=== PATIENT | female | born 1955 | race Caucasian/White ===

== ENCOUNTER 2023-05-03 18:38 | Inpatient (IN) | payer MEDICARE, SELFPAY ==
[2023-05-03] VITALS (24 sets, daily range): BP systolic 60–111; BP diastolic 38–60; PULSE 58–126; RESP 12–20; TEMP 36.4; O2SAT 95–100; BMI 22.2
--- NOTE | ~2023-05-03 | XR_ITS ---
EXAM: XR hand LT 2V DATE: 05/06/2023 14:04 HISTORY: Joint pain . COMPARISON: None available. FINDINGS: Suggestion of periarticular osteopenia. No fracture or dislocation. No lytic or blastic le sravani. Elgin neck deformity in multiple fingers. Scattered subchondral cysts in multiple carpal bones. Severe osteoarthritic change at the trapeziometacarpal joint. No erosion or periosteal change. Soft t issues within normal limits. IMPRESSION: Severe trapeziometacarpal osteoarthritis. Periarticular osteopenia and swan neck deformit ies which may represent underlying rheumatoid arthritis. Reviewed, dictated and finalized at location K. IMPRESSION: Severe trapeziometacarpal osteoarthritis. Periarticular osteopenia and swan neck deformities which may represent underlying rheumatoid arthritis.
--- NOTE | ~2023-05-03 | US_ITS ---
EXAMINATION: US renal BI DATE: 05/05/2023 11:07 INDICATION: Elevated creatinine TECHNIQUE: Multiple ultrasound grayscale images of the kidneys were obtained. COMPARISON: None. FINDINGS: The right kidney measures 8.3 x 4.0 x 3.9 cm. The left kidney measures 9.2 x 4.5 x 4.4 cm. The kidney s demonstrate normal echogenicity. There is no hydronephrosis in either kidney. No stones identified . The bladder is decompressed around a Guidry catheter which limits evaluation. IMPRESSION: 1. Normal kidneys without hydronephrosis. Reviewed, dictated and finalized at location A.
--- NOTE | ~2023-05-03 | XR_ITS ---
EXAMINATION: XR chest 1V portable 05/03/2023 19:43 INDICATION: Hypotension. Syncope. PROCEDURE: AP portable chest COMPARISON: No prior studies for comparison. FINDINGS: The lungs are clear. The cardiomediastinal silhouette is within normal limits. There are no pleural effusions. There is no pneumothorax suspected. IMPRESSION: 1: NO ACUTE CARDIOPULMONARY DISEASE. Reviewed, dictated and finalized at location A.
--- NOTE | ~2023-05-03 | XR_ITS ---
XR chest port-a-cath/central 05/03/2023 21:00 Indication: Post central line placement Procedure: AP portable chest Comparison: 05/03/2023 Findings: Heart size normal. No focal air space disease, pulmonary edema, pleural effusion or suspect ed pneumothorax. Right IJ central line tip near the cavoatrial junction. Impression: 1: No acute cardiopulmonary disease. Reviewed, dictated and finalized at location A. Impression: 1: No acute cardiopulmonary disease.
--- NOTE | ~2023-05-03 | XR_ITS ---
EXAM: XR abdomen/kub 1V DATE: 05/05/2023 08:43 HISTORY: C diff diarrhea . COMPARISON: None available. FINDINGS: Normal bowel gas pattern. No organomegaly. No abnormal abdominal calcification. Regional b ones and soft tissues normal for age. IMPRESSION: Unremarkable abdominal radiograph findings. Reviewed, dictated and finalized at location K.
--- NOTE | 2023-05-03 18:57 | ECG_ITS ---
Measurements Intervals Harold Rate: 60 P: 59 NJ: 156 QRS: 56 QRSD: 110 T: 62 QT: 298 QTc: 299 Interpretive Statements SINUS RHYTHM POSSIBLE LEFT ATRIAL ENLARGEMENT INCOMPLETE RIGHT BUNDLE BRANCH BLOCK MINIMAL Q WAVES- INFERIOR LEADS BORDERLINE ST-T WAVE ABNORMALITY- ANT/HIGH LAT LEADS BORDERLINE ECG NO PREVIOUS ECG AVAILABLE FOR COMPARISON Electronically Signed On 05-03-2023 20:32:08 CDT by Donald Perez D.O.
[2023-05-03] MEDS: LACTATED RINGERS 1,000 ML 999 ML IV CONT (19:26)
--- NOTE | 2023-05-03 19:30 | ED.SYNCOPE ---
HPI - Syncope General Chief Complaint: Syncope Stated Complaint: SYNCOPAL EPISODE Time Seen by Provider: 05/03/23 19:03 History of Present Illness HPI narrative: patient states that earlier today she had been feeling pretty tired and lightheaded, she went to sit down for dinner and felt better after sitting down, and then she went to go to the bathroom and as she was washing hands felt very lightheaded again and then passed out. She is on blood pressure medications but denies taking too much of it. Per , she has seemed pretty tired the last few weeks and seen to be sleeping more than usual. Patient denies any chest pain, trouble breathing, fevers or chills, dysuria, or any other complaints. denies any pain anywhere. Related Data Home Medications Medication Instructions Recorded Confirmed escitalopram oxalate 20 mg tablet 20 mg PO DAILY 06/07/22 04/29/23 ferrous sulfate 325 mg (65 mg 325 mg PO DAILY 06/07/22 04/29/23 iron) tablet gabapentin 600 mg tablet 600 mg PO TID 06/07/22 04/29/23 levothyroxine 100 mcg capsule 100 mcg PO DAILY 06/07/22 04/29/23 cetirizine 10 mg capsule (Zyrtec) 10 mg PO DAILY PRN Allergy Symptoms 06/13/22 04/29/23 Allergies Allergy/AdvReac Type Severity Reaction Status Date / Time No Known Allergies Allergy Verified 05/03/23 19:31 Review of Systems Review of Systems: CONST: lightheaded and tired HEENT: No sore throat C/V: No chest pain RESP: No cough GI: No abdominal pain : No dysuria. M/S: No joint pain. SKIN: No rash. NEURO: [No focal numbness or weakness] PSYCH: [No depression] [facility] Social History Social History (Updated 04/29/23 @ 14:30 by Margarita Shelton MA) Smoking status: Never smoker Substance use: unknown Do You Feel Safe in your Home?: Yes Lack of Transportation: No Lack of Food: Never True Current Housing: I Have Housing Concerned About Future Housing: No Difficulty Paying Gas/Electric Bills: No Difficulty Paying for Meds: No Currently Unemployed: No Education: High School Diploma/GED Difficulty w/ Childcare or Family Care: No Living arrangements: with family Gender identity (if verbalized by the patient): Female Sexual Orientation (if Verbalized by the Patient): Straight or Heterosexual Exam Narrative: EXAMINATION OF ORGAN SYSTEMS/BODY AREAS: Constitutional: Vital signs per nursing GENERAL:[No acute distress, non-toxic appearing.] HEAD: Normal with no signs of head trauma. EYES: EOMI, conjunctiva normal ENT: Hearing grossly intact LUNGS: Nonlabored breathing. HEART: [Regular rate and rhythm] ABD: [Soft], [nontender to palpation] EXT: Normal range of motion SKIN: [No rashes or lesions.] NEURO: [Alert and oriented x 3. No gross focal sensory or strength deficits.] PSYCH: Normal affect Course Vital Signs Vital signs: Vital Signs Temperature 97.5 F L 05/03/23 18:43 Pulse Rate 60 05/03/23 18:43 Respiratory Rate 14 05/03/23 18:43 Blood Pressure 70/41 L 05/03/23 18:43 Pulse Oximetry 96 05/03/23 18:43 Temperature 97.5 F L 05/03/23 18:43 Pulse Rate 78 05/03/23 22:20 Respiratory Rate 13 05/03/23 21:36 Blood Pressure 102/57 L 05/03/23 22:20 Pulse Oximetry 99 05/03/23 21:36 Procedures Central Line Placement Right IJ: Central Line Date: 05/03/23 Central Line Time: 21:04 Discussed w/ the patient/family/POA,the placement of a central venous catheter, including its clinical necessity/indication & associated potential risks, benifits and alternatives.: Yes The patient/family/POA understand(s) and acknowledge(s) the need to proceed with central venous catheter insertion as an important element of the patient's clinical management.: Yes Time Out Performed: Yes Patient Placed on Monitor/Pulse Ox: Yes Max. Sterile Barrier Technique: Caps, large sterile sheet and hand hygiene Central Line Prep: 2% chlorhexidine scrub and steri
[2023-05-03 19:34] LABS: Basophils Absolute Auto 0.1 K/mm3 (0.0-0.1); Basophils Percent Auto 0.7 % (0.2-1.2); Eosinophils Absolute Auto 0.3 K/mm3 (0-0.3); Eosinophils Percent Auto 2.1 % (0-4.4); Hematocrit 33.9 % (37.0-47.0); Hemoglobin 10.4 g/dL (12.0-15.0); Immature Granulocyte Absolute 0.09 K/mm3 (0.00-0.031); Immature Granulocyte Percent A 0.7 % (0-0.5); Lymphocytes Absolute Auto 1.28 K/mm3 (0.9-3.2); Lymphocytes Percent Auto 9.5 % (18.3-44.2); Mean Corpuscular HGB Conc 30.7 g/dl (32-36); Mean Corpuscular Hemoglobin 25.2 pg (26-34); Mean Corpuscular Volume 82.3 fl (80-100); Mean Platelet Volume 9.6 fl (7.4-10.4); Monocytes Absolute Auto 0.9 K/mm3 (0.1-0.6); Monocytes Percent Auto 6.8 % (2.6-8.5); Neutrophils Absolute Auto 10.9 K/mm3 (1.3-6.7); Neutrophils Percent Auto 80.2 % (45.5-73.1); Platelet Count Result 550 k/mm3 (150-375); Red Blood Count 4.12 M/mm3 (4.2-5.4); Red Cell Distribution Width 16.1 % (11.5-14.5); White Blood Count 13.5 K/mm3 (4.5-10.0)
[2023-05-03 19:57] LABS: Lactic Acid Reflex 2.3 mmol/L (0.7-2.0)
[2023-05-03 20:38] LABS: Thyroid Stimulating Hormone Reflex 0.835 uIU/mL (0.465-4.68)
--- NOTE | 2023-05-03 20:42 | PC.NURSE ---
Bedside report from Cat, RN. Pt moved to ED4 for central line and levo. Pt axox4 at this time. pressure remains 73/43. Other VS WNL
[2023-05-03] MEDS: NOREPINEPHRINE 8 MG/D5W 250 ML 8 MG/250 ML BAG 9.38 MG IV CONT (21:02)
[2023-05-03] MEDS: PIPERACILLN/TAZ 3.375GM/NS50ML 3.375 GM/50 ML BAG IVPB (21:16)
[2023-05-03] MEDS: LACTATED RINGERS 1,000 ML 150 ML IV CONT (21:16)
[2023-05-03 21:46] LABS: Alanine Aminotransferase 14 U/L (6-35); Albumin Level 2.9 g/dL (3.5-5.1); Alkaline Phosphatase 97 U/L (38-126); Anion Gap 5 mmol/L (8-16); Aspartate Amino Transferase 27 U/L (14-36); Bilirubin,Total 0.2 mg/dL (0.2-1.3); Blood Urea Nitrogen 31 mg/dL (7-17); Calcium 8.1 mg/dL (8.4-10.2); Carbon Dioxide 23 mmol/L (22-30); Chloride 102 mmol/L (98-107); Estimated Glomerular Filt Rate 19; Glucose 112 mg/dL (65-110); Sodium 130 mmol/L (137-145)
[2023-05-03 21:51] LABS: Appearance Urine Clear (Clear); Bacteria Urine None Seen /hpf; Bilirubin Urine Negative (Negative); Blood Urine Negative (Negative); Color Urine Yellow (Yellow); Glucose Urine UA Negative (Negative); Ketones Urine Negative (Negative); Leukocyte Esterase Ur Negative LEU/UL (Negative); Need Manual Microscopic Reviewed; Nitrate Urine Negative (Negative); Protein Urine 1+ mg/dL (Negative); RBC Urine 0-2 /hpf (0-2); Specific Grav Ur 1.008 (1.001-1.035); Squamous Epithelial Cell Urine Occasional /hpf (Few); Urobilinogen Urine 0.2 mg/dL (<2.0); WBC Urine 0-5 /hpf (0-3); pH Urine 5.5 (5.0-9.0)
[2023-05-03 21:52] LABS: Add Urine Microscopic? YES
[2023-05-03 21:53] LABS: Potassium < 2.0 mmol/L (3.4-5.0)
[2023-05-03 21:58] LABS: Troponin I < 0.012 ng/mL (0.000-0.034)
[2023-05-03] MEDS: POTASSIUM CHLORIDE 20 MEQ PACKET (FOR LIQUID) 40 MEQ PO (22:09)
[2023-05-03] MEDS: KCL 40 MEQ/WATER 100 ML 100 ML 25 ML IVPB (22:12)
--- NOTE | 2023-05-03 22:31 | PM.IMHP ---
H&P: HPI History of Present Illness Date/Time: 05/03/23 22:31 Chief Complaint: Syncope Narrative: 68-year-old female with a past medical history of chronic kidney disease at least stage III, depression, iron deficiency anemia and hypothyroidism who presented to the ER from a local restaurant after having a syncopal episode and being found to be profoundly hypotensive. EMS gave patient 1 L fluid bolus EN route to the hospital which was completed. Patient received another L of fluid bolus in the ER and despite receiving greater than 30 mL/kilos fluid bolus patient remained hypotensive and subsequently had central line placed. The patient reports that she had been busy going to her primary care physician's office today and had not had a chance to eat and had only drink a small amount of coffee. She reports that she usually drinks a large amount of water every day. She reports her appetite has been normal she was just too busy to stop in eat. She then went to dinner at 16:00 with her and sister. When she initially got to the restaurant she had sudden acute onset of feeling lightheaded and weak when walking into the restaurant. She sat down and ate and felt better. However when she got up to go to the restroom she initially felt okay. But while she was standing at the sink and washing her hands she became acutely lightheaded and had to lay across the counter. Her sister then found her in this position in assisted her to a chair. While she was sitting in the chair bent over at the waist the patient had multiple episodes of syncope. When EMS arrived to the site patient's blood pressures were 46/26. On arrival to the hospital patient's blood pressures were in the 60s in 70 systolic. She was not tachycardic or tachypneic. She reported that when she started to feel lightheaded she did have a little bit of associated nausea when she was sitting in the chair. She had not had any loose bowels or recent diarrhea but does wear depends due to history of intermittent loose stools. She has not had any changes in urinary frequency, dysuria or hematuria. She denies any hematochezia or melena. Her hemoglobin on presentation to the ER was 10 which was down from 1 week ago when hemoglobin was 13. She denies any chest pain, shortness breast or palpitations. She reports that she has usually a lot of energy. But will have a day here there where she is profoundly weak. She does admit that she felt weaker than usual today. She has not been having any fevers or chills. She denies any respiratory symptoms or palpitations. She went to see Dr. Ramana Saxena for chronic kidney disease recently and her hydrochlorothiazide was discontinued as well as her potassium supplement. She has been taking her iron supplement at home. Her antihypertensive was switched to lisinopril for kidney protective benefits. She has been compliant with the medication change. She did report bilateral lower flank pain just above her SI joint that occurred while she was having her episode of acute distress at the restaurant. The pain started after she had already felt lightheaded in the restroom. It is not accompanied by any GI symptoms. The pain had resolved by the time she arrived to the ER. Pain was not reproducible. It was moderate to severe in intensity and no eliciting or relieving factors. Review of Systems Review of Systems: 12 systems were reviewed with pertinent positives and negatives per HPI. Except as documented in the HPI, all other systems were reviewed and are negative. [facility] Past Medical History Medical History (Updated 05/04/23 @ 01:10 by Fabi Mcmillan DO) Chronic kidney disease With prior creatinine of 1.4 in May 2022 Depression Hearing loss of both ears Hypo-osmolality and hyponatremia Chronic with baseline sodium around 130 Hypothyroidism Iron deficiency anemia Surgical History Surgical History (Updated 05/04/23 @ 01:10 by Fabi Mcmillan DO
[2023-05-03 22:32] LABS: Reflex Lactic Acid Yes or No Add Lactic
[2023-05-03 22:35] LABS: Magnesium 2.2 mg/dL (1.6-2.3)
[2023-05-03 22:52] LABS: Procalcitonin 0.2 ng/mL
[2023-05-03] MEDS: MAGNESIUM SULF 2 GM/WATER 50ML 2 GM/50 ML BAG IVPB (23:00)
[2023-05-03 23:06] LABS: Cortisol Random 8.12 ug/dL
[2023-05-03 23:19] LABS: Lactic Acid 0.7 mmol/L (0.7-2.0)
--- NOTE | 2023-05-03 23:31 | ADMGEN ---
This patient, Alise Lam, was admitted to Intensive Care Unit-4. Patient/family oriented to hospital policies and general routines including ID bracelet, bed and alarms, visiting hours, pain management, procedures, bathroom and other care routines, personal items, smoking policy, room service/diet, and visiting hours. Information on how to activate the Rapid Response Team has been discussed. Patient/Family are encouraged to report perceived risks to care and to ask questions if they do not understand what they are told or what they should do.
[2023-05-04] VITALS (46 sets, daily range): BP systolic 70–118; BP diastolic 37–83; PULSE 52–79; RESP 11–18; TEMP 36.2–37.2; O2SAT 93–100
--- NOTE | 2023-05-04 | ECHO_ITS ---
Patient Info Name: Alise Lam Age: 68 years : 1955 Gender: Female Ht: 59 in Wt: 110 lbs BSA: 1.45 m2 HR: 75 bpm BP: 94 / 58 mmHg Heart Rhythm: Sinus Rhythm Technical Quality: Good Exam Date: 05/04/2023 10:36 AM Exam Location: Echo Lab Patient Status: Inpatient Admit Date: 05/03/2023 Staff Ordering Physician: Jose Crandall MD [employer] Manager: Anthony Escamilla RDCS Attending Provider: Kwame Hopkins MD Exam Type: CA echo doppler color flow Study Info Indications - shock Complete two-dimensional, color flow and Doppler transthoracic echocardiogram is performed. Summary 1. Complete two-dimensional, color flow and Doppler transthoracic echocardiogram is performed. 2. Normal left and right ventricular size and systolic function. 3. Mildly sclerotic aortic valve but without functional stenosis. 4. Thickened appearance to the pericardium in the apical projection but no pericardial fluid. Left Ventricle Left ventricular chamber dimension is normal. Left ventricular systolic function is normal, estimated at 55-60%. The left ventricular diastolic function is normal. Right Ventricle Right ventricular chamber dimension is normal. Left Atria Left atrial chamber dimension is normal. Right Atria Right atrial chamber dimension is normal. Aortic Valve The aortic valve is trileaflet. There is mild aortic valve sclerosis. Pulmonic Valve The pulmonic valve is not well visualized. Mitral Valve The mitral valve has normal leaflets. Tricuspid Valve The tricuspid valve leaflets are normal. Pericardium/Pleural The pericardium appears thickened pericardium. Aorta The aortic root size at the sinus of Valsalva is normal. Left Ventricular Outflow Tract Name Value Normal LVOT 2D LVOT Diameter 1.8 cm LVOT Doppler LVOT Peak Gradient 4 mmHg LVOT Mean Gradient 2 mmHg LVOT VTI 27 cm LVOT VTI/AV VTI Ratio 1.0 LVOT Stroke Volume 73 ml LVOT CO 4.0 l/min LVOT CI 2.8 l/min/m2 Pulmonic Valve Name Value Normal RVOT Doppler RVOT Peak Gradient 2 mmHg PV Doppler PV Peak Gradient 4 mmHg Mitral Valve Name Value Normal MV Doppler MV Decel Surry 334 cm/s2 MV PHT 86 ms MV Area (PHT) 2.6 cm2 4.0-5.0 MV Diastolic Function MV E
[2023-05-04] MEDS: LACTATED RINGERS 1,000 ML 125 ML IV CONT ×3 (00:15→16:53)
[2023-05-04] MEDS: POTASSIUM CHLORIDE 20 MEQ ER TABLET 40 MEQ PO ×2 (00:16→05:21)
[2023-05-04 02:14] LABS: MRSA (PCR) NOT DETECTED (NOT DETECTE)
[2023-05-04 03:22] LABS: Immature Reticulocyte Fraction 13.4 % (3.0-15.9); Reticulocyte Hemoglobin Conten 28.5 pg (28.2-36.6); Reticulocyte Percent 1.39 % (0.7-4.3); Reticulocytes Absolute 0.06 10^6/uL (0.02-0.10)
[2023-05-04 03:26] LABS: Potassium 3.1 mmol/L (3.4-5.0)
[2023-05-04 03:31] LABS: Iron 36 ug/dL (37-170)
[2023-05-04 03:40] LABS: Percent Iron Saturation 15 % (20-50)
[2023-05-04 04:36] LABS: Folic Acid 4.7 ng/mL (2.76->20)
[2023-05-04] MEDS: LEVOTHYROXINE SODIUM 100 MCG TABLET PO (05:21)
[2023-05-04] MEDS: CENTRAL LINE FLUSH 10 ML IV PUSH ×3 (05:21→22:45)
[2023-05-04] MEDS: ESCITALOPRAM OXALATE 10 MG TABLET 20 MG PO (08:08)
[2023-05-04 08:14] LABS: Basophils Absolute Auto 0.1 K/mm3 (0.0-0.1); Basophils Percent Auto 0.7 % (0.2-1.2); Eosinophils Absolute Auto 0.4 K/mm3 (0-0.3); Eosinophils Percent Auto 2.9 % (0-4.4); Hematocrit 36.2 % (37.0-47.0); Hemoglobin 11.4 g/dL (12.0-15.0); Immature Granulocyte Absolute 0.06 K/mm3 (0.00-0.031); Immature Granulocyte Percent A 0.4 % (0-0.5); Lymphocytes Absolute Auto 1.48 K/mm3 (0.9-3.2); Mean Corpuscular HGB Conc 31.5 g/dl (32-36); Mean Corpuscular Hemoglobin 25.1 pg (26-34); Mean Corpuscular Volume 79.7 fl (80-100); Mean Platelet Volume 9.3 fl (7.4-10.4); Monocytes Percent Auto 7.7 % (2.6-8.5); Neutrophils Absolute Auto 10.4 K/mm3 (1.3-6.7); Neutrophils Percent Auto 77.3 % (45.5-73.1); Platelet Count Result 587 k/mm3 (150-375); Red Blood Count 4.54 M/mm3 (4.2-5.4); Red Cell Distribution Width 16.3 % (11.5-14.5); White Blood Count 13.5 K/mm3 (4.5-10.0)
[2023-05-04 08:25] LABS: Alanine Aminotransferase 14 U/L (6-35); Alkaline Phosphatase 92 U/L (38-126); Anion Gap 5 mmol/L (8-16); Aspartate Amino Transferase 26 U/L (14-36); Bilirubin,Total 0.2 mg/dL (0.2-1.3); Blood Urea Nitrogen 26 mg/dL (7-17); Calcium 8.8 mg/dL (8.4-10.2); Carbon Dioxide 22 mmol/L (22-30); Chloride 109 mmol/L (98-107); Estimated Glomerular Filt Rate 25; Glucose 127 mg/dL (65-110); Potassium 2.5 mmol/L (3.4-5.0); Sodium 136 mmol/L (137-145)
--- NOTE | 2023-05-04 08:44 | PM.CNNEP ---
Assessment and Plan Assessment and plan (1) Acute kidney injury superimposed on chronic kidney disease: Code(s): N17.9 - Acute kidney failure, unspecified; N18.9 - Chronic kidney disease, unspecified Status: Acute Assessment and Plan: The patient has chronic kidney disease. This was evaluated and found to be due to her longstanding hypertension. Lately her blood pressures been well controlled on the hydrochlorothiazide. Her baseline creatinine runs around 1.5. Now the patient has a higher creatinine of 2.5. I suspect that this is because of the low blood pressure. Lisinopril can also cause the creatinine to rise because of change in hemodynamics within the kidneys. Will check a renal ultrasound, CPK, and urine electrolytes. (2) Hypo-osmolality and hyponatremia: Code(s): E87.1 - Hypo-osmolality and hyponatremia Status: Acute Assessment and Plan: Sodium level was low on the hydrochlorothiazide. This is better now at 136 but not normal. SPEP is pending. TSH is normal. (3) Acute hypotension: Code(s): I95.9 - Hypotension, unspecified Status: Acute Assessment and Plan: Why the blood pressure suddenly dropped last evening is unclear. It was fine earlier that day and Dr. Negro's office. The patient was evaluated for infection so far this is negative. Dr. Crandall has ordered an echocardiogram. She did have a cortisol level which was only 8.2. We can check a Cortrosyn stim test. Hemoglobin is not inordinately low and there is no history of GI bleed. She is on pressors now and IV fluids. Pressors are being weaned. Will leave her off all blood pressure medications for the time being. (4) Acute hypokalemia: Code(s): E87.6 - Hypokalemia Status: Acute Assessment and Plan: Potassium is low. Strangely this is after she is been off of the hydrochlorothiazide and on lisinopril in a patient with chronic kidney disease, which should make the potassium higher. Will check a urine potassium aldosterone and renin. (5) Anemia: Code(s): D64.9 - Anemia, unspecified Status: Acute Assessment and Plan: T sat is low. She is getting iron pills. Will give Venofer while she is here History of Present Illness Reason for Consult Consult date: 05/04/23 Chief Complaint Chief complaint: hypoentension, hypoK History of Present Illness Narrative: Bakari is a very pleasant 68-year-old lady who has multiple medical problems including hypertension, chronic kidney disease, depression, hyponatremia, and iron deficiency anemia. The patient was recently in my office. She has stable kidney function and stable mildly low sodium. Because of the low sodium and the renal insufficiency the hydrochlorothiazide was stopped and low-dose lisinopril was started. The patient did okay for the 1st few days she was on the lisinopril yes. Yesterday she did go to see Dr. Bernal in the office and the blood pressure was fine. He she did not eat breakfast or lunch yesterday but when she went to dinner she had soup and a salad. Later in the bathroom the patient felt lightheaded and fainted. The called 911 and the EMT he has arrived and found her to be very hypotensive. This started IV in gave her some fluid and brought her into the hospital. In the ER they evaluated her. She was still hypotensive. It they placed her on Levophed, got some cultures, gave her antibiotics, and placed her in the ICU. This morning the patient feels better. Her blood pressure is better but she still on a little bit of Levophed. She denies any nausea vomiting or diarrhea. Other than yesterday's skipping of lunch and breakfast, she has been eating well. She did develop a rash in the ghazal area and Dr. Bernal diagnosis yeast in gave her a salve but she has not picked this up yet Review of Systems Constitutional: Constitutional: Reports no additional constitutional complaints Eyes: Eyes: Reports no
[2023-05-04] MEDS: MIDODRINE HCL 2.5 MG TABLET 5 MG PO ×3 (09:05→16:54)
[2023-05-04] MEDS: ENOXAPARIN 30 MG/0.3 ML SYRINGE SUB-Q (09:05)
[2023-05-04] MEDS: POTASSIUM CHLORIDE 20 MEQ PACKET (FOR LIQUID) 40 MEQ PO ×4 (09:05→22:42)
[2023-05-04] MEDS: KCL 40 MEQ/WATER 100 ML 100 ML 25 ML IVPB ×2 (09:06→18:43)
[2023-05-04] MEDS: COSYNTROPIN 0.25 MG/ML VIAL IV PUSH (09:30)
--- NOTE | 2023-05-04 09:37 | WPDCNINT ---
Assessment and Plan Assessment and plan (1) Hypotension: Code(s): I95.9 - Hypotension, unspecified Status: Acute Assessment and Plan: Patient presented with hypotension which appears to be likely multifactorial. Patient was recently started on lisinopril which is likely the cause. Despite IV fluids patient was hypertensive and is currently on Levophed Continue IV fluids and Levophed titration to maintain mean arterial pressure Start midodrine Lisinopril has been obviously discontinued Patient has not exhibited any objective signs of infection. She is asymptomatic. Procalcitonin level is low. Chest x-ray and UA are negative. She was started on Zosyn which will be continued for now until we have culture results back If unable to wean off of pressors will consider stress dose steroids (2) Hypothyroidism: Qualifiers: Hypothyroidism type: unspecified Qualified Code(s): E03.9 - Hypothyroidism, unspecified Code(s): E03.9 - Hypothyroidism, unspecified Status: Acute Assessment and Plan: Continue levothyroxine TSH is normal (3) Acute kidney injury superimposed on chronic kidney disease: Code(s): N17.9 - Acute kidney failure, unspecified; N18.9 - Chronic kidney disease, unspecified Status: Acute Assessment and Plan: Likely secondary to hypotension and dehydration Her baseline creatinine is close to 1.5 when she presented with creatinine of 2.5 with fluids creatinine has improved to 2 Continue monitoring urine output electrolytes and creatinine Continue IV fluids for now Check CK level Renal ultrasound is ordered and pending Nephrology is currently evaluating the patient will defer further evaluation and management to Nephrology (4) Hypokalemia: Code(s): E87.6 - Hypokalemia Status: Acute Assessment and Plan: Patient was found to be having severe hypokalemia on presentation. Potassium level was less than 2.0 She received potassium supplementation and this morning her potassium is 2.5 I have ordered additional IV and p.o. potassium replacement and will recheck BMP later this afternoon Nephrology has also been consulted (5) SIRS (systemic inflammatory response syndrome): Code(s): R65.10 - Systemic inflammatory response syndrome (SIRS) of non-infectious origin without acute organ dysfunction Status: Acute Assessment and Plan: Patient presented with hypotension and elevated WBC count but does not have any other evidence of infection Patient is on empiric antibiotics at this time which will be continued for 48 hours. Treatment as above Plan DVT prophylaxis -Lovenox Nutrition -diet ordered Code Status - Full Code Case discussed with Dr. Saxena from Nephrology Total Critical Care Time - 35 minutes Due to a high probability of clinically significant, life threatening deterioration, the patient required my highest level of preparedness to intervene emergently and I personally spent this critical care time directly and personally managing the patient. This critical care time included obtaining a history; examining the patient; pulse oximetry; ordering and review of studies; arranging urgent treatment with development of a management plan; evaluation of patient's response to treatment; frequent reassessment; and discussions with other providers. It was exclusive of separately billable procedures and treating other patients and teaching time. Please see Assessment and Plan section and the rest of the note for further information on patient assessment and treatment [employer] Consult Note Consult date: 05/04/23 Reason for consult: Syncope, hypotension, hypokalemia HPI: Alise Lam is a 68 year old female with past medical history of chronic kidney disease and hypothyroidism presented to ER yesterday after having a syncope at a restaurant. Patient states that she was eating lunch and went to restroom where she passed out for a minute. Her sis
[2023-05-04 10:32] LABS: Creatinine Urine 18.4 mg/dL; Total Protein Urine Random 26 mg/dL; Ur Ttl Prot Creatinine Ratio 1.41 mg/mg (0-0.20)
[2023-05-04 10:48] LABS: Creatine Kinase 55 U/L (30-135); Magnesium 3.1 mg/dL (1.6-2.3)
[2023-05-04 11:00] LABS: Potassium Urine Random 7.8 meq/L; Sodium Urine Random 65 meq/L
[2023-05-04] MEDS: FERROUS SULFATE 325 MG TABLET DR PO (12:45)
[2023-05-04] MEDS: GABAPENTIN 300 MG CAPSULE 600 MG PO (16:54)
--- NOTE | 2023-05-04 17:34 | PM.IMPN ---
Progress Note: A&P Assessment and Plan (1) SIRS (systemic inflammatory response syndrome): Code(s): R65.10 - Systemic inflammatory response syndrome (SIRS) of non-infectious origin without acute organ dysfunction Status: Acute (2) Hypotension: Code(s): I95.9 - Hypotension, unspecified Status: Acute (3) Chronic kidney disease, unspecified: Code(s): N18.9 - Chronic kidney disease, unspecified Status: Acute (4) Hypo-osmolality and hyponatremia: Code(s): E87.1 - Hypo-osmolality and hyponatremia Status: Acute (5) Acute hypotension: Code(s): I95.9 - Hypotension, unspecified Status: Acute (6) Acute hypokalemia: Code(s): E87.6 - Hypokalemia Status: Acute (7) Hypothyroidism: Qualifiers: Hypothyroidism type: unspecified Qualified Code(s): E03.9 - Hypothyroidism, unspecified Code(s): E03.9 - Hypothyroidism, unspecified Status: Acute (8) Acute kidney injury superimposed on chronic kidney disease: Code(s): N17.9 - Acute kidney failure, unspecified; N18.9 - Chronic kidney disease, unspecified Status: Acute (9) Shock: Code(s): R57.9 - Shock, unspecified Status: Acute (10) Anemia: Code(s): D64.9 - Anemia, unspecified Status: Acute (11) Hypokalemia: Code(s): E87.6 - Hypokalemia Status: Acute Plan Patient is admitted in ICU for critical care management Continue with credit review officer care Continue with IV Levophed drip for hypotension, titrate as tolerated Patient started on oral midodrine to augment blood pressure Follow-up with nephrology for MERCEDEZ on CKD for their recommendations Patient had severe hypokalemia on admission with potassium less than 2 which was aggressively replaced Potassium level is today 2.5 which is still very low Continue with aggressive IV and oral potassium replacement as per credit review officer Continue with empiric antibiotics for SIRS Follow-up cultures His prognosis remains guarded ? Patient seen and examined at bedside during my morning rounds ? Collaborated with patient's nurse at the bedside in detail and addressed all concerns ? Labs, electrolytes, radiology, investigations and test results reviewed ? Consult/Nursing/Ancilliary notes on the chart reviewed and appreciated ? Spoke with patient/family at the bedside and answered all the questions that they had Repeat labs in a.m. Electrolyte replacement as per protocol. Patient will be monitored very closely on the floor. Further recommendations as per the hospital course. Time Spent With Patient Time with patient: 15 - 25 minutes Subjective Date/time seen: 05/04/23 17:34 Interval history: Patient lying in bed during my morning rounds. Currently on IV Levophed. Feels tired and fatigued Review of Systems Review of Systems: 14 systems were reviewed with pertinent positives and negatives per HPI. Except as documented in the HPI/progress notes, all other systems were reviewed and are negative. All systems reviewed & are unremarkable except as noted in HPI and below Exam Narrative: PHYSICAL EXAMINATION: Vital signs: Please see the chart General physical exam: Patient lying in bed, appears tired and fatigued, pleasant and cooperative with exam Head/eyes: Atraumatic, EOMI, PERRLA ENT: Moist mucous membranes, nasal passages clear Neck: Supple, full range of motion, trachea midline CVS: S1 + S2, regular rate and rhythm, no murmurs Respiratory: Bilaterally fair air entry in both lung cordon, mild B/L crackles, symmetric chest expansion, no distress Abdomen: Soft, non-tender, bowel sounds +ve, no organomegaly Extremities: No clubbing, no cyanosis, no edema, no calf tenderness Musculoskeletal: Moves all, decreased range of motion, no muscle spasms Skin: Warm, dry, no jaundice, no cyanosis Neurological: Awake, alert, oriented x 3, cranial nerves II-XII intact, no focal neurological deficits Psychiatric: Normal m
[2023-05-04 17:53] LABS: Anion Gap 5 mmol/L (8-16); Blood Urea Nitrogen 22 mg/dL (7-17); Calcium 8.7 mg/dL (8.4-10.2); Carbon Dioxide 20 mmol/L (22-30); Chloride 110 mmol/L (98-107); Estimated Glomerular Filt Rate 30; Glucose 101 mg/dL (65-110); Potassium 2.8 mmol/L (3.4-5.0); Sodium 135 mmol/L (137-145)
[2023-05-04] MEDS: NOREPINEPHRINE 8 MG/D5W 250 ML 8 MG/250 ML BAG 9.38 MG IV CONT (20:45)
[2023-05-04] MEDS: SODIUM CHLORIDE 0.9% IV 1,000 ML 999 ML IV CONT (22:43)
[2023-05-04 23:16] LABS: Lactic Acid Reflex 0.5 mmol/L (0.7-2.0)
[2023-05-04 23:41] LABS: IFOB Positive Control Positive; Immunochemical Fecal Occult Bl Negative (N)
[2023-05-05] VITALS (22 sets, daily range): BP systolic 80–133; BP diastolic 39–89; PULSE 49–72; RESP 13–20; TEMP 36.6–37.3; O2SAT 95–100
[2023-05-05 00:22] LABS: Toxigenic C. Diff POSITIVE (NEGATIVE)
[2023-05-05 01:15] LABS: Alanine Aminotransferase 14 U/L (6-35); Albumin Level 2.6 g/dL (3.5-5.1); Alkaline Phosphatase 79 U/L (38-126); Anion Gap 3 mmol/L (8-16); Aspartate Amino Transferase 27 U/L (14-36); Bilirubin,Total 0.2 mg/dL (0.2-1.3); Blood Urea Nitrogen 18 mg/dL (7-17); Calcium 8.3 mg/dL (8.4-10.2); Carbon Dioxide 18 mmol/L (22-30); Chloride 117 mmol/L (98-107); Estimated Glomerular Filt Rate 32; Glucose 93 mg/dL (65-110); Potassium 3.3 mmol/L (3.4-5.0); Sodium 138 mmol/L (137-145)
[2023-05-05] MEDS: VANCOMYCIN HCL 250 MG ORAL CAPSULE 500 MG PO ×2 (02:04→05:36)
[2023-05-05] MEDS: LACTATED RINGERS 1,000 ML 125 ML IV CONT (02:04)
[2023-05-05] MEDS: LEVOTHYROXINE SODIUM 100 MCG TABLET PO (05:36)
[2023-05-05] MEDS: CENTRAL LINE FLUSH 10 ML IV PUSH ×3 (05:37→22:16)
[2023-05-05 06:04] LABS: Basophils Absolute Auto 0.1 K/mm3 (0.0-0.1); Basophils Percent Auto 0.5 % (0.2-1.2); Eosinophils Absolute Auto 0.6 K/mm3 (0-0.3); Eosinophils Percent Auto 4.8 % (0-4.4); Hematocrit 35.5 % (37.0-47.0); Hemoglobin 10.8 g/dL (12.0-15.0); Immature Granulocyte Absolute 0.07 K/mm3 (0.00-0.031); Immature Granulocyte Percent A 0.6 % (0-0.5); Lymphocytes Absolute Auto 2.21 K/mm3 (0.9-3.2); Mean Corpuscular HGB Conc 30.4 g/dl (32-36); Mean Corpuscular Hemoglobin 25.1 pg (26-34); Mean Corpuscular Volume 82.6 fl (80-100); Mean Platelet Volume 9.3 fl (7.4-10.4); Monocytes Absolute Auto 0.7 K/mm3 (0.1-0.6); Neutrophils Percent Auto 69.1 % (45.5-73.1); Platelet Count Result 566 k/mm3 (150-375); Red Cell Distribution Width 16.8 % (11.5-14.5); White Blood Count 11.6 K/mm3 (4.5-10.0)
[2023-05-05 06:17] LABS: Alanine Aminotransferase 14 U/L (6-35); Albumin Level 2.6 g/dL (3.5-5.1); Alkaline Phosphatase 81 U/L (38-126); Anion Gap 4 mmol/L (8-16); Aspartate Amino Transferase 24 U/L (14-36); Bilirubin,Total 0.2 mg/dL (0.2-1.3); Blood Urea Nitrogen 17 mg/dL (7-17); Calcium 8.5 mg/dL (8.4-10.2); Carbon Dioxide 18 mmol/L (22-30); Chloride 115 mmol/L (98-107); Estimated Glomerular Filt Rate 32; Glucose 100 mg/dL (65-110); Phosphorus 3.4 mg/dL (2.5-4.5); Potassium 3.1 mmol/L (3.4-5.0); Sodium 137 mmol/L (137-145)
--- NOTE | 2023-05-05 08:21 | WPDINTPN ---
Progress Note: A&P Assessment and Plan (1) Hypotension: Code(s): I95.9 - Hypotension, unspecified Status: Acute Assessment and Plan: Patient presented with hypotension which appears to be likely multifactorial. Patient was recently started on lisinopril which is likely the cause. Despite IV fluids patient was hypotensive and is currently on Levophed Continue IV fluids and Levophed titration to maintain mean arterial pressure Continue midodrine Lisinopril has been obviously discontinued Patient did not exhibited any objective signs of infection. She is asymptomatic. Procalcitonin level is low. Chest x-ray and UA are negative. She was started on Zosyn which will be continued for now until we have culture results back She was weaned off of Levophed in the evening but later had to be restarted after a bout of a large diarrhea. Patient came back positive for C diff and is now being treated for C diff associated diarrhea (2) Hypothyroidism: Qualifiers: Hypothyroidism type: unspecified Qualified Code(s): E03.9 - Hypothyroidism, unspecified Code(s): E03.9 - Hypothyroidism, unspecified Status: Acute Assessment and Plan: Continue levothyroxine TSH is normal (3) Acute kidney injury superimposed on chronic kidney disease: Code(s): N17.9 - Acute kidney failure, unspecified; N18.9 - Chronic kidney disease, unspecified Status: Acute Assessment and Plan: Likely secondary to hypotension and dehydration Her baseline creatinine is close to 1.5 when she presented with creatinine of 2.5 Continue monitoring urine output electrolytes and creatinine Continue IV fluids for now Normal cK level Renal ultrasound is ordered and pending Nephrology is currently evaluating the patient will defer further evaluation and management to Nephrology Creatinine is improved to 1.6 (4) Hypokalemia: Code(s): E87.6 - Hypokalemia Status: Acute Assessment and Plan: Patient was found to be having severe hypokalemia on presentation. Potassium level was less than 2.0 She received potassium supplementation 05/03 potassium is 2.5.I have ordered additional IV and p.o. potassium replacement and will recheck BMP later this afternoon Nephrology is following 05/04 she received additional potassium replacement yesterday evening. Potassium is 3.1 again this morning will order additional replacement Her recent history of diarrhea would explain hypokalemia (5) C. difficile diarrhea: Code(s): A04.72 - Enterocolitis due to Clostridium difficile, not specified as recurrent Status: Acute Assessment and Plan: On admission patient denied any diarrhea abdominal pain. Last night patient had 1 episode of large liquid stool yesterday. Her C diff PCR came back positive. Her lactic acid level was negative and stool fecal occult blood was negative. Patient has been started on p.o. vancomycin which will be continued. Today she confirmed she was having loose bowel movements 3 a day for last week or so but no history of antibiotic use recently Plan DVT prophylaxis -Lovenox Nutrition -diet ordered Code Status - Full Code Case discussed with Dr. Saxena from Nephrology Up in chair Incentive spirometry Total Critical Care Time - 32 minutes Due to a high probability of clinically significant, life threatening deterioration, the patient required my highest level of preparedness to intervene emergently and I personally spent this critical care time directly and personally managing the patient. This critical care time included obtaining a history; examining the patient; pulse oximetry; ordering and review of studies; arranging urgent treatment with development of a management plan; evaluation of patient's response to treatment; frequent reassessment; and discussions with other providers. It was exclusive of separately billable procedures and treating other patients and teaching time. Please see Assessment
[2023-05-05] MEDS: KCL 20 MEQ/0.45% NS 1,000 ML 75 ML IV CONT (09:12)
[2023-05-05] MEDS: ESCITALOPRAM OXALATE 10 MG TABLET 20 MG PO (09:19)
[2023-05-05] MEDS: FOLIC ACID 1 MG TABLET PO (09:19)
[2023-05-05] MEDS: ENOXAPARIN 30 MG/0.3 ML SYRINGE SUB-Q (09:20)
[2023-05-05] MEDS: MIDODRINE HCL 10 MG TABLET PO ×3 (09:20→18:08)
[2023-05-05] MEDS: POTASSIUM BICARBONATE 25 MEQ TABEF 50 MEQ PO (09:21)
[2023-05-05] MEDS: KCL 40 MEQ/WATER 100 ML 100 ML 25 ML IVPB (09:29)
[2023-05-05] MEDS: IRON SUCROSE COMPLEX 300 MG in SODIUM CHLORIDE 0.9% IV 250 ML 177 MG IVPB (11:38)
[2023-05-05] MEDS: VANCOMYCIN HCL 250 MG ORAL CAPSULE PO ×2 (11:39→18:08)
[2023-05-05] MEDS: FERROUS SULFATE 325 MG TABLET DR PO (11:39)
[2023-05-05] MEDS: GABAPENTIN 300 MG CAPSULE 600 MG PO ×2 (12:36→18:07)
--- NOTE | 2023-05-05 14:20 | PM.PNNEP ---
Progress Note: A&P Assessment and Plan (1) Acute kidney injury superimposed on chronic kidney disease: Code(s): N17.9 - Acute kidney failure, unspecified; N18.9 - Chronic kidney disease, unspecified Status: Acute Assessment and Plan: The patient has chronic kidney disease. This was evaluated and found to be due to her longstanding hypertension. Lately her blood pressures been well controlled on the hydrochlorothiazide. Her baseline creatinine runs around 1.5. The patient has MERCEDEZ on top of the CKD CK is normal Urine electrolytes are non pre renal Most likely this is due to her low blood pressure. The C diff may be playing a role as well, at least in the low blood pressure. the creatinine was higher on admission at 2.5. This improved by yesterday and is back to baseline today. Will keep off all BP meds for now unless her blood pressure rises substantially. (2) Hypo-osmolality and hyponatremia: Code(s): E87.1 - Hypo-osmolality and hyponatremia Status: Acute Assessment and Plan: Sodium level was low on the hydrochlorothiazide. It was not normal off the hydrochlorothiazide on admission but she was also dehydrated. Now this is normal after hydration (3) Acute hypotension: Code(s): I95.9 - Hypotension, unspecified Status: Acute Assessment and Plan: Why the blood pressure suddenly dropped last evening is unclear. It was fine earlier that day and Dr. Negro's office. The patient was evaluated for infection so far this is negative. Dr. Crandall has ordered an echocardiogram. She did have a cortisol level which was only 8.2. We can check a Cortrosyn stim test. Hemoglobin is not inordinately low and there is no history of GI bleed. Perhaps it was a combination of the C diff plus the lisinopril She is on pressors now and IV fluids. Pressors off now. Blood pressure is pretty good. (4) Acute hypokalemia: Code(s): E87.6 - Hypokalemia Status: Acute Assessment and Plan: Resolved with supplement (5) Anemia: Code(s): D64.9 - Anemia, unspecified Status: Acute Assessment and Plan: T sat is low. She is getting iron pills. Giving venofer while she is here (6) Pain of left thumb: Code(s): M79.645 - Pain in left finger(s) Status: Acute Assessment and Plan: The patient has an almost contracted left thumb. Not very sore as if it was gout. She has a blood pressure cuff on that same arm. Her calcium is normal and her albumin is low so does not look like she has hypocalcemia. Her [place] sign was negative. An ionized calcium is pending. Subjective Date/time seen: 05/05/23 14:20 Interval history: Alert. She says she has diarrhea. She realizes now that she had some diarrhea before she came in as well. No chest pain or shortness of breath Exam Narrative: WDWN in NAD skin no rash head ncat lungs clear cor reg no rub abd BS+ nontender and soft ext no edema. Objective Data Vital Signs Vital Signs: Vital Signs - 24 hr 05/04/23 16:00 05/04/23 16:00 05/04/23 16:56 Temperature Pulse Rate 68 62 Respiratory Rate Blood Pressure 103/66 Pulse Oximetry Oxygen Delivery Room Air 05/04/23 17:47 05/04/23 16:00 05/04/23 17:54 Temperature Pulse Rate 62 63 66 Respiratory Rate 16 Blood Pressure 106/58 L 103/70 Pulse Oximetry 99 Oxygen Delivery 05/04/23 18:00 05/04/23 20:45 05/04/23 22:00 Temperature Pulse Rate 61 62 58 L Respiratory Rate 17 Blood Pressure 94/52 L 78/48 L 115/61 Pulse Oximetry 98 Oxygen Delivery 05/04/23 23:00 05/04/23 22:00 05/04/23 20:00 Temperature 98.9 F Pulse Rate 61 58 L Respiratory Rate 16 Blood Pressure 116/65 115/61 Pulse Oximetry 99 Oxygen Delivery Room Air 05/04/23 20:00 05/05/23 00:00 05/05/23 00:00 Temperature 98.2 F Pulse Rate 66 63 Respiratory Rate 17 Blood Pressure 125/66
[2023-05-05 14:23] LABS: Anion Gap 4 mmol/L (8-16); Blood Urea Nitrogen 18 mg/dL (7-17); Calcium 8.9 mg/dL (8.4-10.2); Carbon Dioxide 19 mmol/L (22-30); Chloride 115 mmol/L (98-107); Estimated Glomerular Filt Rate 32; Glucose 89 mg/dL (65-110); Magnesium 2.1 mg/dL (1.6-2.3); Phosphorus 2.7 mg/dL (2.5-4.5); Sodium 138 mmol/L (137-145)
--- NOTE | 2023-05-05 17:19 | PM.IMPN ---
Progress Note: A&P Assessment and Plan (1) SIRS (systemic inflammatory response syndrome): Code(s): R65.10 - Systemic inflammatory response syndrome (SIRS) of non-infectious origin without acute organ dysfunction Status: Acute (2) Hypotension: Code(s): I95.9 - Hypotension, unspecified Status: Acute (3) Chronic kidney disease, unspecified: Code(s): N18.9 - Chronic kidney disease, unspecified Status: Acute (4) Hypo-osmolality and hyponatremia: Code(s): E87.1 - Hypo-osmolality and hyponatremia Status: Acute (5) Acute hypotension: Code(s): I95.9 - Hypotension, unspecified Status: Acute (6) Acute hypokalemia: Code(s): E87.6 - Hypokalemia Status: Acute (7) Hypothyroidism: Qualifiers: Hypothyroidism type: unspecified Qualified Code(s): E03.9 - Hypothyroidism, unspecified Code(s): E03.9 - Hypothyroidism, unspecified Status: Acute (8) Acute kidney injury superimposed on chronic kidney disease: Code(s): N17.9 - Acute kidney failure, unspecified; N18.9 - Chronic kidney disease, unspecified Status: Acute (9) Shock: Code(s): R57.9 - Shock, unspecified Status: Acute (10) Anemia: Code(s): D64.9 - Anemia, unspecified Status: Acute (11) Hypokalemia: Code(s): E87.6 - Hypokalemia Status: Acute Plan Patient is admitted in ICU for critical care management Continue with flame annealing machine setter management in ICU Continue with IV Levophed drip for hypotension, titrate as tolerated Patient started on oral midodrine to augment blood pressure Follow-up with nephrology for MERCEDEZ on CKD for their recommendations Her renal functions are improving and trending towards baseline Patient had severe hypokalemia on admission with potassium less than 2 which was aggressively replaced Potassium level is today 4 after aggressive replacement over the last couple of days Continue with aggressive IV and oral potassium replacement as per flame annealing machine setter Patient diagnosed with C diff and placed under C diff contact precautions DC empiric antibiotics for SIRS Patient started on oral vancomycin for C diff Follow-up closely with the flame annealing machine setter and certified orthotist regarding patient management in ICU ? Patient seen and examined at bedside during my morning rounds ? Collaborated with patient's nurse at the bedside in detail and addressed all concerns ? Labs, electrolytes, radiology, investigations and test results reviewed ? Consult/Nursing/Ancilliary notes on the chart reviewed and appreciated ? Spoke with patient/family at the bedside and answered all the questions that they had Repeat labs in a.m. Electrolyte replacement as per protocol. Patient will be monitored very closely on the floor. Further recommendations as per the hospital course. Time Spent With Patient Time with patient: 15 - 25 minutes Subjective Date/time seen: 05/05/23 17:19 Interval history: Patient sitting in chair at bedside. IV Levophed drip. Her stool is positive for C diff hence she is under C diff precautions Review of Systems Review of Systems: 14 systems were reviewed with pertinent positives and negatives per HPI. Except as documented in the HPI/progress notes, all other systems were reviewed and are negative. All systems reviewed & are unremarkable except as noted in HPI and below Exam Narrative: PHYSICAL EXAMINATION: Vital signs: Please see the chart General physical exam: Patient lying in bed, appears tired and fatigued, pleasant and cooperative with exam Head/eyes: Atraumatic, EOMI, PERRLA ENT: Moist mucous membranes, nasal passages clear Neck: Supple, full range of motion, trachea midline CVS: S1 + S2, regular rate and rhythm, no murmurs Respiratory: Bilaterally fair air entry in both lung cordon, mild B/L crackles, symmetric chest expansion, no distress Abdomen: Soft, non-tender, bowel sounds +ve, no organomegaly Extremities: No clu
[2023-05-05] MEDS: SODIUM BICARBONATE TAB 650 MG TABLET 1300 MG PO (18:08)
[2023-05-06] VITALS (19 sets, daily range): BP systolic 82–156; BP diastolic 47–80; PULSE 51–87; RESP 12–21; TEMP 36.5–36.8; O2SAT 94–99
[2023-05-06] MEDS: VANCOMYCIN HCL 250 MG ORAL CAPSULE PO ×2 (00:53→06:04)
[2023-05-06] MEDS: KCL 20 MEQ/0.45% NS 1,000 ML 75 ML IV CONT (01:11)
[2023-05-06] MEDS: LEVOTHYROXINE SODIUM 100 MCG TABLET PO (06:04)
[2023-05-06] MEDS: CENTRAL LINE FLUSH 10 ML IV PUSH ×3 (06:09→20:03)
[2023-05-06 06:19] LABS: Hematocrit 34.5 % (37.0-47.0); Hemoglobin 10.5 g/dL (12.0-15.0); Mean Corpuscular HGB Conc 30.4 g/dl (32-36); Mean Corpuscular Hemoglobin 25.2 pg (26-34); Mean Corpuscular Volume 82.7 fl (80-100); Mean Platelet Volume 9.1 fl (7.4-10.4); Platelet Count Result 453 k/mm3 (150-375); Red Blood Count 4.17 M/mm3 (4.2-5.4); Red Cell Distribution Width 17.2 % (11.5-14.5); White Blood Count 11.2 K/mm3 (4.5-10.0)
[2023-05-06 06:27] LABS: Alanine Aminotransferase 14 U/L (6-35); Albumin Level 2.5 g/dL (3.5-5.1); Alkaline Phosphatase 78 U/L (38-126); Anion Gap 7 mmol/L (8-16); Aspartate Amino Transferase 23 U/L (14-36); Bilirubin,Total 0.2 mg/dL (0.2-1.3); Blood Urea Nitrogen 15 mg/dL (7-17); Calcium 8.6 mg/dL (8.4-10.2); Carbon Dioxide 17 mmol/L (22-30); Chloride 113 mmol/L (98-107); Estimated Glomerular Filt Rate 32; Glucose 75 mg/dL (65-110); Magnesium 1.8 mg/dL (1.6-2.3); Potassium 3.4 mmol/L (3.4-5.0); Sodium 137 mmol/L (137-145)
--- NOTE | 2023-05-06 08:08 | PC.NURSE ---
VS documented on wroong patient.
[2023-05-06] MEDS: SODIUM BICARBONATE 8.4% 150 MEQ in WATER, STERILE FOR INJECTION 950 ML 75 MEQ IV CONT (09:15)
[2023-05-06] MEDS: KCL 40 MEQ/WATER 100 ML 100 ML 20 ML IVPB (09:16)
[2023-05-06] MEDS: ALBUMIN HUMAN 25% 25 GM/100 ML 100 ML IVPB ×3 (09:16→18:16)
[2023-05-06] MEDS: ENOXAPARIN 30 MG/0.3 ML SYRINGE SUB-Q (09:17)
[2023-05-06] MEDS: POTASSIUM BICARBONATE 25 MEQ TABEF 50 MEQ PO (09:17)
[2023-05-06] MEDS: GABAPENTIN 300 MG CAPSULE 600 MG PO ×3 (09:18→18:17)
[2023-05-06] MEDS: MIDODRINE HCL 10 MG TABLET PO ×3 (09:18→18:17)
[2023-05-06] MEDS: FOLIC ACID 1 MG TABLET PO (09:18)
[2023-05-06] MEDS: SODIUM BICARBONATE TAB 650 MG TABLET 1300 MG PO ×2 (09:18→18:17)
[2023-05-06] MEDS: ESCITALOPRAM OXALATE 10 MG TABLET 20 MG PO (09:18)
--- NOTE | 2023-05-06 09:34 | WPDINTPN ---
Progress Note: A&P Assessment and Plan (1) Hypotension: Code(s): I95.9 - Hypotension, unspecified Status: Acute Assessment and Plan: Patient presented with hypotension which appears to be likely multifactorial. Patient was recently started on lisinopril which is likely the cause. Despite IV fluids patient was hypotensive and is currently on Levophed 05/05 Levophed was weaned off yesterday but restarted at night Continue cautious IV fluids and Levophed titration to maintain mean arterial pressure Continue midodrine At 25% albumin Off lisinopril Patient came back positive for C diff and is now being treated for C diff associated diarrhea Cosyntropin stim test was adequate (2) Hypothyroidism: Qualifiers: Hypothyroidism type: unspecified Qualified Code(s): E03.9 - Hypothyroidism, unspecified Code(s): E03.9 - Hypothyroidism, unspecified Status: Acute Assessment and Plan: Continue levothyroxine TSH is normal (3) Acute kidney injury superimposed on chronic kidney disease: Code(s): N17.9 - Acute kidney failure, unspecified; N18.9 - Chronic kidney disease, unspecified Status: Acute Assessment and Plan: Likely secondary to hypotension and dehydration Her baseline creatinine is close to 1.5 when she presented with creatinine of 2.5 Continue monitoring urine output electrolytes and creatinine Continue IV fluids for now Normal cK level Renal ultrasound is ordered and pending Nephrology is currently evaluating the patient will defer further evaluation and management to Nephrology Creatinine is improved to 1.6 Change IV fluids to bicarb for metabolic acidosis (4) Hypokalemia: Code(s): E87.6 - Hypokalemia Status: Acute Assessment and Plan: Patient was found to be having severe hypokalemia on presentation. Potassium level was less than 2.0 She received potassium supplementation 05/03 potassium is 2.5.I have ordered additional IV and p.o. potassium replacement and will recheck BMP later this afternoon Nephrology is following 05/04 she received additional potassium replacement yesterday evening. Potassium is 3.1 again this morning will order additional replacement Her recent history of diarrhea would explain hypokalemia 05/05 additional replacement ordered. Condition replacement ordered for ordered (5) C. difficile diarrhea: Code(s): A04.72 - Enterocolitis due to Clostridium difficile, not specified as recurrent Status: Acute Assessment and Plan: On admission patient denied any diarrhea abdominal pain. 05/03 patient had 1 episode of large liquid stool yesterday. Her C diff PCR came back positive. Her lactic acid level was negative and stool fecal occult blood was negative. Patient has been started on p.o. vancomycin which will be continued. 05/04 she confirmed she was having loose bowel movements 3 a day for last week or so but no history of antibiotic use recently 05/05 Only 1 bowel movement yesterday. Continue vancomycin KUB shows unremarkable bowel gas pattern (6) Metabolic acidosis: Code(s): E87.20 - Acidosis, unspecified Status: Acute Assessment and Plan: P.o. bicarb is ordered Plan DVT prophylaxis -Lovenox Nutrition -diet ordered Code Status - Full Code Up in chair Incentive spirometry Total Critical Care Time - 30 minutes Due to a high probability of clinically significant, life threatening deterioration, the patient required my highest level of preparedness to intervene emergently and I personally spent this critical care time directly and personally managing the patient. This critical care time included obtaining a history; examining the patient; pulse oximetry; ordering and review of studies; arranging urgent treatment with development of a management plan; evaluation of patient's response to treatment; frequent reassessment; and discussions with other providers. It was exclusive of separately billable procedur
--- NOTE | 2023-05-06 11:06 | P.PNNP_ITS ---
Progress Note: A&P Assessment and Plan (1) MERCEDEZ (acute kidney injury): Code(s): N17.9 - Acute kidney failure, unspecified Status: Acute Assessment and Plan: * slow improvement noted * likely secondary to hypotension/henmodynamic instability + infection leading to ATN/renal hypoperfusion * evaluation to date noted: * urine electrolytes are non-prerenal * renal u/s okay * CPK normal * moderate proteinuria * follow repeat lans and UOP (2) Stage 3b chronic kidney disease: Code(s): N18.32 - Chronic kidney disease, stage 3b Status: Chronic Assessment and Plan: * baseline creatinine runs ~ 1.5mg/dl * based on outpatient evaluation, thought to be secondary to longstanding hypertension * follows with Dr. Saxena for management of her CKD (3) Acute hypotension: Code(s): I95.9 - Hypotension, unspecified Status: Acute Assessment and Plan: * still requiring low dose levophed (started back up overnight * presumsed secondary sepsis from C. diff colitis + TOSHIA-I use prior to admission * wean vasopressors as tolerated * holding BP medications * follow trend of hemodynamics (4) C. difficile diarrhea: Code(s): A04.72 - Enterocolitis due to Clostridium difficile, not specified as recurrent Status: Acute Assessment and Plan: * patient had 1 episode of large liquid stool on 05/03 * C diff PCR came back positive * lactic acid level was negative * stool fecal occult blood was negative. * started on p.o. vancomycin * continue supportive therapy (5) Anemia: Code(s): D64.9 - Anemia, unspecified Status: Acute Assessment and Plan: * related to CKD and acute illness * on iron * follow H/H Will continue to follow. Subjective Date/time seen: 05/06/23 11:06 Interval history: Follow-up for acute kidney injkury/acute renal failure on chronic kidney disease. Chart reviewed -- assuming care from Dr. Saxena; on low dose levophed gtt due to soft blood pressure overnight; renal function continues to improve with good urinbe output; tolerating oral intake without any issues or problems; bowel movement seem to be slowling down in the last 24 hours; no acute distress voiced. Exam Narrative: General: elderly but WD/WN female in NAD Heart: normal S1 and S2; no rub Lungs: clear to auscultation Abdomen: soft, nontender, nondistended, positive bowel sounds Extremities: no cyanosis or clubbing; no edema Skin: warm and dry Objective Data Vital Signs Vital Signs: Vital Signs Temp Pulse Resp BP Pulse Ox O2 Del Method 05/06/23 11:00 98.2 F 76 16 108/80 99 05/06/23 10:00 98 F 70 17 99/77 L 99 05/06/23 09:07 98.1 F 77 21 H 93/50 L 96 05/06/23 06:00 55 L 14 104/61 96 05/06/23 06:00 55 L 05/06/23 04:00 Room Air 05/06/23 06:00 62 104/61 05/06/23 04:00 53 L 95/56 L 05/06/23 04:00 52 L 05/06/23 02:00 62 15 93/53 L 97 05/06/23 04:00 98.2 F 53 L 13 95/56 L 98 05/06/23 02:07 53 L 93/53 L 05/06/23 02:00 53 L 05/06/23 00:00 54 L 05/05/23 22:00 55 L 05/05/23 20:00 57 L 05/06/23 01:15 59 L 141/66 H 05/06/23 00:00 98.3 F 51 L 14 110/57 L 96
--- NOTE | 2023-05-06 11:06 | PM.PNNEP ---
Progress Note: A&P Assessment and Plan (1) MERCEDEZ (acute kidney injury): Code(s): N17.9 - Acute kidney failure, unspecified Status: Acute Assessment and Plan: slow improvement noted likely secondary to hypotension/henmodynamic instability + infection leading to ATN/renal hypoperfusion evaluation to date noted: urine electrolytes are non-prerenal renal u/s okay CPK normal moderate proteinuria follow repeat lans and UOP (2) Stage 3b chronic kidney disease: Code(s): N18.32 - Chronic kidney disease, stage 3b Status: Chronic Assessment and Plan: baseline creatinine runs ~ 1.5mg/dl based on outpatient evaluation, thought to be secondary to longstanding hypertension follows with Dr. Saxena for management of her CKD (3) Acute hypotension: Code(s): I95.9 - Hypotension, unspecified Status: Acute Assessment and Plan: still requiring low dose levophed (started back up overnight presumsed secondary sepsis from C. diff colitis + TOSHIA-I use prior to admission wean vasopressors as tolerated holding BP medications follow trend of hemodynamics (4) C. difficile diarrhea: Code(s): A04.72 - Enterocolitis due to Clostridium difficile, not specified as recurrent Status: Acute Assessment and Plan: patient had 1 episode of large liquid stool on 05/03 C diff PCR came back positive lactic acid level was negative stool fecal occult blood was negative. started on p.o. vancomycin continue supportive therapy (5) Anemia: Code(s): D64.9 - Anemia, unspecified Status: Acute Assessment and Plan: related to CKD and acute illness on iron follow H/H Will continue to follow. Subjective Date/time seen: 05/06/23 11:06 Interval history: Follow-up for acute kidney injkury/acute renal failure on chronic kidney disease. Chart reviewed -- assuming care from Dr. Saxena; on low dose levophed gtt due to soft blood pressure overnight; renal function continues to improve with good urinbe output; tolerating oral intake without any issues or problems; bowel movement seem to be slowling down in the last 24 hours; no acute distress voiced. Exam Narrative: General: elderly but WD/WN female in NAD Heart: normal S1 and S2; no rub Lungs: clear to auscultation Abdomen: soft, nontender, nondistended, positive bowel sounds Extremities: no cyanosis or clubbing; no edema Skin: warm and dry Objective Data Vital Signs Vital Signs: Vital Signs Temp Pulse Resp BP Pulse Ox O2 Del Method 05/06/23 11:00 98.2 F 76 16 108/80 99 05/06/23 10:00 98 F 70 17 99/77 L 99 05/06/23 09:07 98.1 F 77 21 H 93/50 L 96 05/06/23 06:00 55 L 14 104/61 96 05/06/23 06:00 55 L 05/06/23 04:00 Room Air 05/06/23 06:00 62 104/61 05/06/23 04:00 53 L 95/56 L 05/06/23 04:00 52 L 05/06/23 02:00 62 15 93/53 L 97 05/06/23 04:00 98.2 F 53 L 13 95/56 L 98 05/06/23 02:07 53 L 93/53 L 05/06/23 02:00 53 L 05/06/23 00:00 54 L 05/05/23 22:00 55 L 05/05/23 20:00 57 L 05/06/23 01:15 59 L 141/66 H 05/06/23 00:00 98.3 F 51 L 14 110/57 L 96 05/06/23 01:10 55 L 129/55 L 05/06/23 00:00 Room Air 05/05/23 20:00 Room Air 05/06/23 01:00 66 82/47 L 05/05/23 22:10 98/60 L 05/05/23 22:00 49 L 14 80/41 L 95 05/05/23 20:00 98.8 F 57 L 13 108/52 L 98 05/05/23 18:00 98 F 63 20 120/58 L 99 05/05/23 18:00 64 05/05/23 16:30 98.0 F 61 19 119/39 L 97 05/05/23 14:15 64 18 114/89 98 05/05/23 16:00 71 05/05/23 14:00 66 05/05/23 16:00 Room Air Intake/Output Intake/Output: Intake & Output 05/03/23 05/04/23 05/05/23 05/06/23 23:59 23:59 23:59 23:59 Intake Total 2091.2 3482.4 3225.0 1129.0 Output Total 3291 6025 650 Balance 209.2 -1342.6 775.0
[2023-05-06] MEDS: VANCOMYCIN HCL 125 MG ORAL CAPSULE PO ×2 (12:52→18:17)
[2023-05-06] MEDS: ACETAMINOPHEN 325 MG TABLET 650 MG PO (12:52)
[2023-05-06] MEDS: FERROUS SULFATE 325 MG TABLET DR PO (12:54)
[2023-05-06] MEDS: MAGNESIUM SULF 2 GM/WATER 50ML 2 GM/50 ML BAG IVPB (13:08)
--- NOTE | 2023-05-06 13:21 | P.PNCROSS_ITS ---
Event Note Event Note Event Note: Patient complaining of redness and pain in 2nd MCP joint of left hand. She sta cyndi that yesterday she was having pain in the base of thumb today the 2nd MCP joint is red and swollen. She is able to move her finger but it is painful. On exam the joint is red slightly swollen and tender. Patient denies any history of gout but does appear to have arthritis of her small joints of the hands from the exam. Could be acute osteoarthritis versus gout versus pseudogout Check x-ray, hold NSAIDs due to acute kidney injury. Will start prednisone p.o.
[2023-05-06] MEDS: HYDROcodone/acetaminophen (*CRX) 10-325 MG TABLET 1 TAB PO ×2 (13:42→20:01)
[2023-05-06] MEDS: predniSONE 20 MG TABLET 40 MG PO (13:42)
--- NOTE | 2023-05-06 18:45 | PM.IMPN ---
Progress Note: A&P Assessment and Plan (1) SIRS (systemic inflammatory response syndrome): Code(s): R65.10 - Systemic inflammatory response syndrome (SIRS) of non-infectious origin without acute organ dysfunction Status: Acute (2) Hypotension: Code(s): I95.9 - Hypotension, unspecified Status: Acute (3) Chronic kidney disease, unspecified: Code(s): N18.9 - Chronic kidney disease, unspecified Status: Acute (4) Hypo-osmolality and hyponatremia: Code(s): E87.1 - Hypo-osmolality and hyponatremia Status: Acute (5) Acute hypotension: Code(s): I95.9 - Hypotension, unspecified Status: Acute (6) Acute hypokalemia: Code(s): E87.6 - Hypokalemia Status: Acute (7) Hypothyroidism: Qualifiers: Hypothyroidism type: unspecified Qualified Code(s): E03.9 - Hypothyroidism, unspecified Code(s): E03.9 - Hypothyroidism, unspecified Status: Acute (8) Acute kidney injury superimposed on chronic kidney disease: Code(s): N17.9 - Acute kidney failure, unspecified; N18.9 - Chronic kidney disease, unspecified Status: Acute (9) Shock: Code(s): R57.9 - Shock, unspecified Status: Acute (10) Anemia: Code(s): D64.9 - Anemia, unspecified Status: Acute (11) Hypokalemia: Code(s): E87.6 - Hypokalemia Status: Acute Plan Patient is admitted in ICU for critical care management Continue with reliability technician management in ICU Continue with IV Levophed drip for hypotension, titrate as tolerated to DC Patient started on oral midodrine to augment blood pressure Follow-up with nephrology for MERCEDEZ on CKD for their recommendations Her renal functions are improving and trending at 1.6 towards her baseline Patient had severe hypokalemia on admission with potassium less than 2 which was aggressively replaced Potassium level is today 3.4 after aggressive replacement over the last couple of days Continue with aggressive IV and oral potassium replacement as per reliability technician Patient diagnosed with C diff and placed under C diff contact precautions DC empiric antibiotics for SIRS Patient started on oral vancomycin for C diff Follow-up closely with the reliability technician and senior staff psychologist regarding patient management in ICU PT/OT evaluation to be ordered when patient is off Levophed Will need to monitor at least 24 hours on the floor after downgrade from ICU befor DC Spoke with patient and at the bedside in detail ? Patient seen and examined at bedside during my morning rounds ? Collaborated with patient's nurse at the bedside in detail and addressed all concerns ? Labs, electrolytes, radiology, investigations and test results reviewed ? Consult/Nursing/Ancilliary notes on the chart reviewed and appreciated ? Spoke with patient/family at the bedside and answered all the questions that they had Repeat labs in a.m. Electrolyte replacement as per protocol. Patient will be monitored very closely on the floor. Further recommendations as per the hospital course. Time Spent With Patient Time with patient: 15 - 25 minutes Subjective Date/time seen: 05/06/23 18:45 Interval history: Patient lying in bed during my morning rounds. Starting to feel better. Asking when she can be discharged Review of Systems Review of Systems: 14 systems were reviewed with pertinent positives and negatives per HPI. Except as documented in the HPI/progress notes, all other systems were reviewed and are negative. All systems reviewed & are unremarkable except as noted in HPI and below (HPI) Exam Narrative: PHYSICAL EXAMINATION: Vital signs: Please see the chart General physical exam: Patient lying in bed, appears tired and fatigued, pleasant and cooperative with exam Head/eyes: Atraumatic, EOMI, PERRLA ENT: Moist mucous membranes, nasal passages clear Neck: Supple, full range of motion, trachea midline CVS: S1 + S2, regular rate and rhythm, no
[2023-05-06 22:00] LABS: CRP 0.8 mg/dL (<1.0); Uric Acid 6.2 mg/dL (2.5-7.5)
[2023-05-06 22:01] LABS: Erythrocyte Sedimentation Rate 21 mm/hr (0-20)
[2023-05-07] VITALS (13 sets, daily range): BP systolic 91–146; BP diastolic 58–90; PULSE 54–103; RESP 10–18; TEMP 36.1–36.8; O2SAT 93–98; BMI 22.2
[2023-05-07] MEDS: VANCOMYCIN HCL 125 MG ORAL CAPSULE PO ×5 (00:26→23:09)
[2023-05-07] MEDS: ALBUMIN HUMAN 25% 25 GM/100 ML 100 ML IVPB ×2 (00:32→06:13)
[2023-05-07] MEDS: KCL 20 MEQ/0.45% NS 1,000 ML 75 ML IV CONT (02:45)
[2023-05-07] MEDS: CENTRAL LINE FLUSH 10 ML IV PUSH ×3 (06:13→21:23)
[2023-05-07] MEDS: LEVOTHYROXINE SODIUM 100 MCG TABLET PO (06:13)
[2023-05-07 06:30] LABS: Hematocrit 31.4 % (37.0-47.0); Hemoglobin 9.9 g/dL (12.0-15.0); Mean Corpuscular HGB Conc 31.5 g/dl (32-36); Mean Corpuscular Hemoglobin 25.7 pg (26-34); Mean Corpuscular Volume 81.6 fl (80-100); Mean Platelet Volume 9.3 fl (7.4-10.4); Platelet Count Result 393 k/mm3 (150-375); Red Blood Count 3.85 M/mm3 (4.2-5.4); Red Cell Distribution Width 16.6 % (11.5-14.5); White Blood Count 15.3 K/mm3 (4.5-10.0)
[2023-05-07 06:41] LABS: Alanine Aminotransferase 43 U/L (6-35); Albumin Level 3.7 g/dL (3.5-5.1); Alkaline Phosphatase 85 U/L (38-126); Anion Gap 8 mmol/L (8-16); Aspartate Amino Transferase 65 U/L (14-36); Bilirubin,Total 0.3 mg/dL (0.2-1.3); Blood Urea Nitrogen 16 mg/dL (7-17); Calcium 9.2 mg/dL (8.4-10.2); Carbon Dioxide 22 mmol/L (22-30); Chloride 105 mmol/L (98-107); Estimated Glomerular Filt Rate 37; Glucose 89 mg/dL (65-110); Potassium 4.2 mmol/L (3.4-5.0); Sodium 135 mmol/L (137-145); Uric Acid 6.5 mg/dL (2.5-7.5)
[2023-05-07] MEDS: predniSONE 20 MG TABLET 40 MG PO (08:00)
[2023-05-07] MEDS: IRON SUCROSE COMPLEX 300 MG in SODIUM CHLORIDE 0.9% IV 250 ML 177 MG IVPB (08:01)
[2023-05-07] MEDS: ESCITALOPRAM OXALATE 10 MG TABLET 20 MG PO (08:01)
[2023-05-07] MEDS: ENOXAPARIN 30 MG/0.3 ML SYRINGE SUB-Q (08:01)
[2023-05-07] MEDS: FOLIC ACID 1 MG TABLET PO (08:01)
[2023-05-07] MEDS: GABAPENTIN 300 MG CAPSULE 600 MG PO ×3 (08:01→16:49)
[2023-05-07] MEDS: SODIUM BICARBONATE TAB 650 MG TABLET 1300 MG PO ×2 (08:02→16:49)
[2023-05-07] MEDS: MIDODRINE HCL 10 MG TABLET PO ×3 (08:02→16:49)
[2023-05-07 11:15] LABS: Ionized Calcium 5.1 mg/dL (4.7-5.5)
--- NOTE | 2023-05-07 11:32 | P.PNNP_ITS ---
Progress Note: A&P Assessment and Plan (1) MERCEDEZ (acute kidney injury): Code(s): N17.9 - Acute kidney failure, unspecified Status: Acute Assessment and Plan: * slow improvement noted if not resolved * likely secondary to hypotension/hemodynamic instability + infection leading to ATN/renal hypoperfusion * evaluation to date noted: * urine electrolytes are non-prerenal * renal u/s okay * CPK normal * moderate proteinuria * follow repeat lans and UOP (2) Stage 3b chronic kidney disease: Code(s): N18.32 - Chronic kidney disease, stage 3b Status: Chronic Assessment and Plan: * baseline creatinine runs ~ 1.5mg/dl * based on outpatient evaluation, thought to be secondary to longstanding hypertension * follows with Dr. Saxena for management of her CKD (3) Acute hypotension: Code(s): I95.9 - Hypotension, unspecified Status: Acute Assessment and Plan: * presumed secondary sepsis from C. diff colitis + TOSHIA-I use prior to admission * no longer vasopressor support * holding BP medications * on midodrine at this time * follow trend of hemodynamics (4) C. difficile diarrhea: Code(s): A04.72 - Enterocolitis due to Clostridium difficile, not specified as recurrent Status: Acute Assessment and Plan: * patient had 1 episode of large liquid stool on 05/03 * C diff PCR came back positive * lactic acid level was negative * stool fecal occult blood was negative. * started on p.o. vancomycin * continue supportive therapy (5) Anemia: Code(s): D64.9 - Anemia, unspecified Status: Acute Assessment and Plan: * related to CKD and acute illness * on iron * follow H/H Will continue to follow. Subjective Date/time seen: 05/07/23 11:32 Interval history: Follow-up for acute kidney injkury/acute renal failure on chronic kidney disease. No apparent distress voiced at the time of my visit; still having liquid stools but frequency has lessened in the last 24 hours; weaned off levophed with rel ative stability in hemodynamics; renal function stable if not improved with adequate urine output; no other acute complaints voiced. Exam Narrative: General: elderly but WD/WN female in NAD Heart: normal S1 and S2; no rub Lungs: clear to auscultation Abdomen: soft, nontender, nondistended, positive bowel sounds Extremities: no cyanosis or clubbing; no edema Skin: warm and intact Objective Data Vital Signs Vital Signs: Vital Signs Temp Pulse Resp BP Pulse Ox O2 Del Method 05/07/23 11:00 70 17 120/60 97 05/07/23 08:00 83 17 98 Room Air 05/07/23 10:00 73 05/07/23 08:00 97.6 F 83 17 102/59 L 98 05/07/23 08:00 83 05/07/23 06:00 71 11 L 105/58 L 96 05/07/23 04:00 98.2 F 78 18 122/69 96 05/07/23 04:00 Room Air 05/07/23 06:00 71 05/07/23 04:00 83 05/07/23 02:00 103 H 05/07/23 00:00 55 L 05/06/23 22:00 61 05/07/23 00:00 Room Air 05/07/23 02:00 95 18 131/90 94 05/07/23 00:00 98.2 F 54 L 10 L 130/59 L 93 05/06/23 22:00 62 15 124/77 94 05/06/23 19:00 87 124/62 05/07/23 00:33 61 146/83 H 05/06/23 20:00 Room Air
--- NOTE | 2023-05-07 11:32 | PM.PNNEP ---
Progress Note: A&P Assessment and Plan (1) MERCEDEZ (acute kidney injury): Code(s): N17.9 - Acute kidney failure, unspecified Status: Acute Assessment and Plan: slow improvement noted if not resolved likely secondary to hypotension/hemodynamic instability + infection leading to ATN/renal hypoperfusion evaluation to date noted: urine electrolytes are non-prerenal renal u/s okay CPK normal moderate proteinuria follow repeat lans and UOP (2) Stage 3b chronic kidney disease: Code(s): N18.32 - Chronic kidney disease, stage 3b Status: Chronic Assessment and Plan: baseline creatinine runs ~ 1.5mg/dl based on outpatient evaluation, thought to be secondary to longstanding hypertension follows with Dr. Saxena for management of her CKD (3) Acute hypotension: Code(s): I95.9 - Hypotension, unspecified Status: Acute Assessment and Plan: presumed secondary sepsis from C. diff colitis + TOSHIA-I use prior to admission no longer vasopressor support holding BP medications on midodrine at this time follow trend of hemodynamics (4) C. difficile diarrhea: Code(s): A04.72 - Enterocolitis due to Clostridium difficile, not specified as recurrent Status: Acute Assessment and Plan: patient had 1 episode of large liquid stool on 05/03 C diff PCR came back positive lactic acid level was negative stool fecal occult blood was negative. started on p.o. vancomycin continue supportive therapy (5) Anemia: Code(s): D64.9 - Anemia, unspecified Status: Acute Assessment and Plan: related to CKD and acute illness on iron follow H/H Will continue to follow. Subjective Date/time seen: 05/07/23 11:32 Interval history: Follow-up for acute kidney injkury/acute renal failure on chronic kidney disease. No apparent distress voiced at the time of my visit; still having liquid stools but frequency has lessened in the last 24 hours; weaned off levophed with relative stability in hemodynamics; renal function stable if not improved with adequate urine output; no other acute complaints voiced. Exam Narrative: General: elderly but WD/WN female in NAD Heart: normal S1 and S2; no rub Lungs: clear to auscultation Abdomen: soft, nontender, nondistended, positive bowel sounds Extremities: no cyanosis or clubbing; no edema Skin: warm and intact Objective Data Vital Signs Vital Signs: Vital Signs Temp Pulse Resp BP Pulse Ox O2 Del Method 05/07/23 11:00 70 17 120/60 97 05/07/23 08:00 83 17 98 Room Air 05/07/23 10:00 73 05/07/23 08:00 97.6 F 83 17 102/59 L 98 05/07/23 08:00 83 05/07/23 06:00 71 11 L 105/58 L 96 05/07/23 04:00 98.2 F 78 18 122/69 96 05/07/23 04:00 Room Air 05/07/23 06:00 71 05/07/23 04:00 83 05/07/23 02:00 103 H 05/07/23 00:00 55 L 05/06/23 22:00 61 05/07/23 00:00 Room Air 05/07/23 02:00 95 18 131/90 94 05/07/23 00:00 98.2 F 54 L 10 L 130/59 L 93 05/06/23 22:00 62 15 124/77 94 05/06/23 19:00 87 124/62 05/07/23 00:33 61 146/83 H 05/06/23 20:00 Room Air 05/06/23 20:00 97.7 F 63 14 156/60 H 97 05/06/23 20:00 63 05/06/23 18:38 98 F Intake/Output Intake/Output: Intake & Output 05/04/23 05/05/23 05/06/23 05/07/23 23:59 23:59 23:59 23:59 Intake Total 3482.4 3225.0 2977.8 4118.8 Output Total 4825 2450 1400 2830 Balance -1342.6 775.0 1577.8 1288.8 Meds/Results Medications: Active Medications Generic Name Dose Route Start Last Admin Trade Name Freq PRN Reason Stop Dose Admin Acetaminophen 650 mg 05/05/23 12:10 05/06/23 12:52 Acetaminophen 325 Mg Tablet PO 650 mg Q4H PRN Administration Headache, Mild Pain Hydrocodone Bitart/Acetaminophen 1 tab 05/06/23 13:27 Hydrocodone/Acetaminophen (*Crx) 5-325 Mg
--- NOTE | 2023-05-07 12:19 | WPDINTPN ---
Progress Note: A&P Assessment and Plan (1) Hypotension: Code(s): I95.9 - Hypotension, unspecified Status: Acute Assessment and Plan: Patient presented with hypotension which appears to be likely multifactorial. Patient was recently started on lisinopril which is likely the cause. Despite IV fluids patient was hypotensive and is currently on Levophed 05/05 Levophed was weaned off yesterday but restarted at night -patient drinking adequate fluids, -off Levophed with adequate blood pressure -Continue midodrine -discontinue albumin -patient has been off lisinopril -stool positive for C diff currently on p.o. vancomycin f associated diarrhea Cosyntropin stim test was adequate (2) Hypothyroidism: Qualifiers: Hypothyroidism type: unspecified Qualified Code(s): E03.9 - Hypothyroidism, unspecified Code(s): E03.9 - Hypothyroidism, unspecified Status: Acute Assessment and Plan: Continue levothyroxine TSH is normal (3) Acute kidney injury superimposed on chronic kidney disease: Code(s): N17.9 - Acute kidney failure, unspecified; N18.9 - Chronic kidney disease, unspecified Status: Acute Assessment and Plan: Likely secondary to hypotension and dehydration Her baseline creatinine is close to 1.5 when she presented with creatinine of 2.5 Continue monitoring urine output electrolytes and creatinine Continue IV fluids for now Normal cK level Renal ultrasound is ordered and pending Nephrology is currently evaluating the patient will defer further evaluation and management to Nephrology Creatinine is improved to 1.40 this morning, continue to monitor Metabolic acidosis have improved, discontinue sodium bicarb infusion (4) Hypokalemia: Code(s): E87.6 - Hypokalemia Status: Acute Assessment and Plan: RESOLVED Patient was found to be having severe hypokalemia on presentation. Potassium level was less than 2.0 She received potassium supplementation 05/03 potassium is 2.5.I have ordered additional IV and p.o. potassium replacement and will recheck BMP later this afternoon Nephrology is following 05/04 she received additional potassium replacement yesterday evening. Potassium is 3.1 again this morning will order additional replacement Her recent history of diarrhea would explain hypokalemia 05/05 additional replacement ordered. Condition replacement ordered for ordered (5) C. difficile diarrhea: Code(s): A04.72 - Enterocolitis due to Clostridium difficile, not specified as recurrent Status: Acute Assessment and Plan: On admission patient denied any diarrhea abdominal pain. 05/03 patient had 1 episode of large liquid stool yesterday. Her C diff PCR came back positive. Her lactic acid level was negative and stool fecal occult blood was negative. Patient has been started on p.o. vancomycin which will be continued. -05/04 she confirmed she was having loose bowel movements 3 a day for last week or so but no history of antibiotic use recently -05/05 Only 1 bowel movement yesterday. Continue vancomycin KUB shows unremarkable bowel gas pattern -continues to have liquid stools with decreased frequency (6) Metabolic acidosis: Code(s): E87.20 - Acidosis, unspecified Status: Acute Assessment and Plan: Continue p.o. sodium bicarbonate for now, likely metabolic acidosis secondary to diarrhea Plan DVT prophylaxis -Lovenox Nutrition -continue regular diet Code Status - Full Code Up in chair Incentive spirometry Total Critical Care Time - 32 minutes May transfer out of the ICU if okay with hospitalist Due to a high probability of clinically significant, life threatening deterioration, the patient required my highest level of preparedness to intervene emergently and I personally spent this critical care time directly and personally managing the patient. This critical care time included obtaining a history; examining the patient; pulse oxi
[2023-05-07] MEDS: FERROUS SULFATE 325 MG TABLET DR PO (12:22)
--- NOTE | 2023-05-07 13:48 | PM.IMPN ---
Progress Note: A&P Assessment and Plan (1) SIRS (systemic inflammatory response syndrome): Code(s): R65.10 - Systemic inflammatory response syndrome (SIRS) of non-infectious origin without acute organ dysfunction Status: Acute (2) Hypotension: Code(s): I95.9 - Hypotension, unspecified Status: Acute (3) Chronic kidney disease, unspecified: Code(s): N18.9 - Chronic kidney disease, unspecified Status: Acute (4) Hypo-osmolality and hyponatremia: Code(s): E87.1 - Hypo-osmolality and hyponatremia Status: Acute (5) Acute hypotension: Code(s): I95.9 - Hypotension, unspecified Status: Acute (6) Acute hypokalemia: Code(s): E87.6 - Hypokalemia Status: Acute (7) Hypothyroidism: Qualifiers: Hypothyroidism type: unspecified Qualified Code(s): E03.9 - Hypothyroidism, unspecified Code(s): E03.9 - Hypothyroidism, unspecified Status: Acute (8) Acute kidney injury superimposed on chronic kidney disease: Code(s): N17.9 - Acute kidney failure, unspecified; N18.9 - Chronic kidney disease, unspecified Status: Acute (9) Shock: Code(s): R57.9 - Shock, unspecified Status: Acute (10) Anemia: Code(s): D64.9 - Anemia, unspecified Status: Acute (11) Hypokalemia: Code(s): E87.6 - Hypokalemia Status: Acute Plan 68-year-old female with a past medical history of chronic kidney disease at least stage III, depression, iron deficiency anemia and hypothyroidism who presented to the ER from a local restaurant after having a syncopal episode and being found to be profoundly hypotensive 1. Acute shock: Patient presented with hypotension which likely was multifactorial, patient was recently started on lisinopril as an outpatient Status post IV Levophed, off Levophed now Continue with midodrine Empiric antibiotics have been discontinued 2. C diff associated diarrhea: Continue with oral vancomycin 3. Michael on pre-existing CKD: Improving kidney function Avoid nephrotoxins Recheck BMP in a.m. Hypokalemia has resolved Appreciate Renal help 4. Code status: Full 5. DVT prophylaxis: Lovenox 6. Disposition: Can be moved out of ICU Time Spent With Patient Time with patient: 15 - 25 minutes Subjective Date/time seen: 05/07/23 13:48 Interval history: No acute events overnight Review of Systems Review of Systems: 14 systems were reviewed with pertinent positives and negatives per HPI. Except as documented in the HPI/progress notes, all other systems were reviewed and are negative. Exam Narrative: General physical exam: Patient lying in bed, appears tired and fatigued, pleasant and cooperative with exam Head/eyes: Atraumatic, EOMI, PERRLA ENT: Moist mucous membranes, nasal passages clear Neck: Supple, full range of motion, trachea midline CVS: S1 + S2, regular rate and rhythm, no murmurs Respiratory: Bilaterally fair air entry in both lung cordon, mild B/L crackles, symmetric chest expansion, no distress Abdomen: Soft, non-tender, bowel sounds +ve, no organomegaly Extremities: No clubbing, no cyanosis, no edema, no calf tenderness Musculoskeletal: Moves all, decreased range of motion, no muscle spasms Skin: Warm, dry, no jaundice, no cyanosis Neurological: Awake, alert, oriented x 3, cranial nerves II-XII intact, no focal neurological deficits Psychiatric: Normal mood, non suicidal Objective Data Vital Signs Vital Signs: Vital Signs - 24 hr 05/06/23 14:00 05/06/23 14:00 05/06/23 16:00 Temperature 98.1 F Pulse Rate 64 60 60 Respiratory Rate 18 Blood Pressure 112/60 Pulse Oximetry 97 Oxygen Delivery 05/06/23 16:00 05/06/23 16:00 05/06/23 18:00 Temperature Pulse Rate 60 60 73 Respiratory Rate 18 12 Blood Pressure 126/62 Pulse Oximetry 97 98 Oxygen Delivery Room Air 05/06/23 18:00 05/06/23 18:38 05/06/23 20:00 Temperature 98 F Pu
[2023-05-07 14:23] LABS: Albumin 2.8 g/dL (3.8-4.8); Alpha 1 Globulin 0.3 g/dL (0.2-0.3); Alpha 2 Globulin 0.8 g/dL (0.5-0.9); Beta 1 Globulin 0.4 g/dL (0.4-0.6); Gamma Globulin 0.4 g/dL (0.8-1.7); Interpretation Consistent with
[2023-05-07 16:05] LABS: Lactoferrin, Stool Negative (Negative)
[2023-05-07 18:00] LABS: Rotavirus Stool Not Detected
[2023-05-08] VITALS (13 sets, daily range): BP systolic 106–146; BP diastolic 56–80; PULSE 59–81; RESP 16–18; TEMP 35.8–36.6; O2SAT 96–99
[2023-05-08 03:58] LABS: Hematocrit 33.2 % (37.0-47.0); Hemoglobin 10.3 g/dL (12.0-15.0); Mean Corpuscular Hemoglobin 25.3 pg (26-34); Mean Corpuscular Volume 81.6 fl (80-100); Mean Platelet Volume 9.4 fl (7.4-10.4); Platelet Count Result 444 k/mm3 (150-375); Red Blood Count 4.07 M/mm3 (4.2-5.4); Red Cell Distribution Width 16.6 % (11.5-14.5); White Blood Count 13.3 K/mm3 (4.5-10.0)
[2023-05-08 04:12] LABS: Alanine Aminotransferase 33 U/L (6-35); Albumin Level 3.8 g/dL (3.5-5.1); Alkaline Phosphatase 83 U/L (38-126); Anion Gap 10 mmol/L (8-16); Aspartate Amino Transferase 37 U/L (14-36); Bilirubin,Total 0.3 mg/dL (0.2-1.3); Blood Urea Nitrogen 19 mg/dL (7-17); Calcium 9.5 mg/dL (8.4-10.2); Carbon Dioxide 26 mmol/L (22-30); Chloride 104 mmol/L (98-107); Estimated Glomerular Filt Rate 34; Glucose 76 mg/dL (65-110); Magnesium 2.1 mg/dL (1.6-2.3); Sodium 140 mmol/L (137-145)
--- NOTE | 2023-05-08 04:15 | PC.NURSE ---
Pt arrived to room 253 from ICU at 0356. Pt orientated to the room and physical assessment preformed. No signs of distress at this time.
--- NOTE | 2023-05-08 04:15 | PC.NURSE ---
This patient, Alise Lam, was transferred to [facility] on 05/08/23 at 0355. Personal belongings sent with patient. Report given to Festus COLES. Appropriate documentation sent with patient.
[2023-05-08] MEDS: VANCOMYCIN HCL 125 MG ORAL CAPSULE PO (05:17)
[2023-05-08] MEDS: LEVOTHYROXINE SODIUM 100 MCG TABLET PO (05:17)
[2023-05-08] MEDS: predniSONE 20 MG TABLET 40 MG PO (08:52)
[2023-05-08] MEDS: MIDODRINE HCL 10 MG TABLET PO ×3 (08:53→16:53)
[2023-05-08] MEDS: ESCITALOPRAM OXALATE 10 MG TABLET 20 MG PO (08:59)
[2023-05-08] MEDS: GABAPENTIN 300 MG CAPSULE 600 MG PO ×3 (09:00→16:53)
[2023-05-08] MEDS: FOLIC ACID 1 MG TABLET PO (09:00)
[2023-05-08] MEDS: ENOXAPARIN 30 MG/0.3 ML SYRINGE SUB-Q (09:00)
--- NOTE | 2023-05-08 11:42 | PM.IMPN ---
Progress Note: A&P Assessment and Plan (1) SIRS (systemic inflammatory response syndrome): Code(s): R65.10 - Systemic inflammatory response syndrome (SIRS) of non-infectious origin without acute organ dysfunction Status: Acute (2) Hypotension: Code(s): I95.9 - Hypotension, unspecified Status: Acute (3) Chronic kidney disease, unspecified: Code(s): N18.9 - Chronic kidney disease, unspecified Status: Acute (4) Hypo-osmolality and hyponatremia: Code(s): E87.1 - Hypo-osmolality and hyponatremia Status: Acute (5) Acute hypotension: Code(s): I95.9 - Hypotension, unspecified Status: Acute (6) Acute hypokalemia: Code(s): E87.6 - Hypokalemia Status: Acute (7) Hypothyroidism: Qualifiers: Hypothyroidism type: unspecified Qualified Code(s): E03.9 - Hypothyroidism, unspecified Code(s): E03.9 - Hypothyroidism, unspecified Status: Acute (8) Acute kidney injury superimposed on chronic kidney disease: Code(s): N17.9 - Acute kidney failure, unspecified; N18.9 - Chronic kidney disease, unspecified Status: Acute (9) Shock: Code(s): R57.9 - Shock, unspecified Status: Acute (10) Anemia: Code(s): D64.9 - Anemia, unspecified Status: Acute (11) Hypokalemia: Code(s): E87.6 - Hypokalemia Status: Acute Plan 68-year-old female with a past medical history of chronic kidney disease at least stage III, depression, iron deficiency anemia and hypothyroidism who presented to the ER from a local restaurant after having a syncopal episode and being found to be profoundly hypotensive 1. Acute shock: Patient presented with hypotension which likely was multifactorial, patient was recently started on lisinopril as an outpatient Status post IV Levophed, off Levophed now Continue with midodrine Empiric antibiotics have been discontinued 2. C diff associated diarrhea: Continue with oral vancomycin for total 14 days Slowly improving leukocytosis 3. Michael on pre-existing CKD: Improving kidney function Avoid nephrotoxins Recheck BMP in a.m. Hypokalemia has resolved Appreciate Renal help 4. Code status: Full 5. DVT prophylaxis: Lovenox 6. Disposition: Anticipate discharge in next 24-48 hours Time Spent With Patient Time with patient: 15 - 25 minutes Subjective Date/time seen: 05/08/23 11:42 Interval history: No acute events overnight, still having bowel movements, consistency is forming slowly Still frequent though Review of Systems Review of Systems: 14 systems were reviewed with pertinent positives and negatives per HPI. Except as documented in the HPI/progress notes, all other systems were reviewed and are negative. Exam Narrative: General physical exam: Patient lying in bed, appears tired and fatigued, pleasant and cooperative with exam Head/eyes: Atraumatic, EOMI, PERRLA ENT: Moist mucous membranes, nasal passages clear Neck: Supple, full range of motion, trachea midline CVS: S1 + S2, regular rate and rhythm, no murmurs Respiratory: Bilaterally fair air entry in both lung cordon, mild B/L crackles, symmetric chest expansion, no distress Abdomen: Soft, non-tender, bowel sounds +ve, no organomegaly Extremities: No clubbing, no cyanosis, no edema, no calf tenderness Musculoskeletal: Moves all, decreased range of motion, no muscle spasms Skin: Warm, dry, no jaundice, no cyanosis Neurological: Awake, alert, oriented x 3, cranial nerves II-XII intact, no focal neurological deficits Psychiatric: Normal mood, non suicidal Objective Data Vital Signs Vital Signs: Vital Signs - 24 hr 05/07/23 12:00 05/07/23 12:00 05/07/23 14:00 Temperature Pulse Rate 70 78 75 Respiratory Rate 17 Blood Pressure 120/60 Pulse Oximetry 97 Oxygen Delivery 05/07/23 16:00 05/07/23 16:00 05/07/23 17:38 Temperature 97.6 F Pulse Rate 70 70 80 Respiratory Rate 17 Bl
[2023-05-08] MEDS: FERROUS SULFATE 325 MG TABLET DR PO (12:30)
[2023-05-08] MEDS: VANCOMYCIN HCL 250 MG ORAL CAPSULE PO ×3 (12:30→23:10)
--- NOTE | 2023-05-08 13:42 | P.PNNP_ITS ---
Progress Note: A&P Assessment and Plan (1) MERCEDEZ (acute kidney injury): Code(s): N17.9 - Acute kidney failure, unspecified Status: Acute Assessment and Plan: * slow improvement noted if not resolved * likely secondary to hypotension/hemodynamic instability + infection leading to ATN/renal hypoperfusion * evaluation to date noted: * urine electrolytes are non-prerenal * renal u/s okay * CPK normal * moderate proteinuria * follow repeat lans and UOP (2) Stage 3b chronic kidney disease: Code(s): N18.32 - Chronic kidney disease, stage 3b Status: Chronic Assessment and Plan: * baseline creatinine runs ~ 1.5mg/dl * based on outpatient evaluation, thought to be secondary to longstanding hypertension * follows with Dr. Saxena for management of her CKD (3) Acute hypotension: Code(s): I95.9 - Hypotension, unspecified Status: Acute Assessment and Plan: * resolved * presumed secondary sepsis from C. diff colitis + TOSHIA-I use prior to admission * no longer vasopressor support * holding BP medications * on midodrine at this time * follow trend of hemodynamics (4) C. difficile diarrhea: Code(s): A04.72 - Enterocolitis due to Clostridium difficile, not specified as recurrent Status: Acute Assessment and Plan: * patient had 1 episode of large liquid stool on 05/03 * C diff PCR came back positive * lactic acid level was negative * stool fecal occult blood was negative. * started on p.o. vancomycin * continue supportive therapy (5) Anemia: Code(s): D64.9 - Anemia, unspecified Status: Acute Assessment and Plan: * related to CKD and acute illness * on iron * follow H/H Not much else to add -- will continue to follow from a distance. Subjective Date/time seen: 05/08/23 13:42 Interval history: Follow-up for acute kidney injkury/acute renal failure on chronic kidney disease. Transferred out of ICU; stable hemodynamics noted with stability in renal function as well as urine output; still with frequent bowel movement but consistency has improved; no other acute issues/problems voiced at this time. Exam Narrative: General: elderly but WD/WN female in NAD Heart: normal S1 and S2; no rub Lungs: clear to auscultation Abdomen: soft, nontender, nondistended, positive bowel sounds Extremities: no cyanosis or clubbing; no edema Skin: no rash or nodules Objective Data Vital Signs Vital Signs: Vital Signs Temp Pulse Resp BP Pulse Ox O2 Del Method 05/08/23 12:47 97.8 F 76 18 146/80 H 97 05/08/23 09:00 Room Air 05/08/23 10:22 97.7 F 68 18 143/80 H 99 05/08/23 06:09 68 05/08/23 04:00 70 18 97 Room Air 05/08/23 04:12 70 05/08/23 04:00 96.5 F L 70 18 106/56 L 97 05/08/23 02:00 59 L 05/08/23 00:00 97.2 F L 62 16 123/63 96 05/08/23 00:00 62 05/07/23 22:00 62 05/07/23 20:00 68 05/07/23 20:00 96.9 F L 75 18 91/69 L 96 05/07/23 20:00 95 Room Air 05/07/23 17:38 80 Intake/Output Intake/Output: Intake & Output 05/05/23 05/06/23 05/07/23 05/08/23 23:59 23:59 23:59 23:59 Intake
--- NOTE | 2023-05-08 13:42 | PM.PNNEP ---
Progress Note: A&P Assessment and Plan (1) MERCEDEZ (acute kidney injury): Code(s): N17.9 - Acute kidney failure, unspecified Status: Acute Assessment and Plan: slow improvement noted if not resolved likely secondary to hypotension/hemodynamic instability + infection leading to ATN/renal hypoperfusion evaluation to date noted: urine electrolytes are non-prerenal renal u/s okay CPK normal moderate proteinuria follow repeat lans and UOP (2) Stage 3b chronic kidney disease: Code(s): N18.32 - Chronic kidney disease, stage 3b Status: Chronic Assessment and Plan: baseline creatinine runs ~ 1.5mg/dl based on outpatient evaluation, thought to be secondary to longstanding hypertension follows with Dr. Saxena for management of her CKD (3) Acute hypotension: Code(s): I95.9 - Hypotension, unspecified Status: Acute Assessment and Plan: resolved presumed secondary sepsis from C. diff colitis + TOSHIA-I use prior to admission no longer vasopressor support holding BP medications on midodrine at this time follow trend of hemodynamics (4) C. difficile diarrhea: Code(s): A04.72 - Enterocolitis due to Clostridium difficile, not specified as recurrent Status: Acute Assessment and Plan: patient had 1 episode of large liquid stool on 05/03 C diff PCR came back positive lactic acid level was negative stool fecal occult blood was negative. started on p.o. vancomycin continue supportive therapy (5) Anemia: Code(s): D64.9 - Anemia, unspecified Status: Acute Assessment and Plan: related to CKD and acute illness on iron follow H/H Not much else to add -- will continue to follow from a distance. Subjective Date/time seen: 05/08/23 13:42 Interval history: Follow-up for acute kidney injkury/acute renal failure on chronic kidney disease. Transferred out of ICU; stable hemodynamics noted with stability in renal function as well as urine output; still with frequent bowel movement but consistency has improved; no other acute issues/problems voiced at this time. Exam Narrative: General: elderly but WD/WN female in NAD Heart: normal S1 and S2; no rub Lungs: clear to auscultation Abdomen: soft, nontender, nondistended, positive bowel sounds Extremities: no cyanosis or clubbing; no edema Skin: no rash or nodules Objective Data Vital Signs Vital Signs: Vital Signs Temp Pulse Resp BP Pulse Ox O2 Del Method 05/08/23 12:47 97.8 F 76 18 146/80 H 97 05/08/23 09:00 Room Air 05/08/23 10:22 97.7 F 68 18 143/80 H 99 05/08/23 06:09 68 05/08/23 04:00 70 18 97 Room Air 05/08/23 04:12 70 05/08/23 04:00 96.5 F L 70 18 106/56 L 97 05/08/23 02:00 59 L 05/08/23 00:00 97.2 F L 62 16 123/63 96 05/08/23 00:00 62 05/07/23 22:00 62 05/07/23 20:00 68 05/07/23 20:00 96.9 F L 75 18 91/69 L 96 05/07/23 20:00 95 Room Air 05/07/23 17:38 80 Intake/Output Intake/Output: Intake & Output 05/05/23 05/06/23 05/07/23 05/08/23 23:59 23:59 23:59 23:59 Intake Total 3225.0 2977.8 4118.8 980 Output Total 2450 1400 3130 380 Balance 775.0 1577.8 988.8 600 Meds/Results Medications: Active Medications Generic Name Dose Route Start Last Admin Trade Name Freq PRN Reason Stop Dose Admin Acetaminophen 650 mg 05/05/23 12:10 05/06/23 12:52 Acetaminophen 325 Mg Tablet PO 650 mg Q4H PRN Administration Headache, Mild Pain Hydrocodone Bitart/Acetaminophen 1 tab 05/06/23 13:27 Hydrocodone/Acetaminophen (*Crx) 5-325 Mg Tablet PO Q4H PRN Pain Rated 4-6 Hydrocodone Bitart/Acetaminophen 1 tab 05/06/23 13:27 05/06/23 20:01 Hydrocodone/Acetaminophen (*Crx) 10-325 Mg Tablet PO 1 tab Q4H PRN Administration Pain Rated 7-10 Enoxaparin Sodium 30 mg 05/04/23 09:00 05/08/23 0
[2023-05-09] MEDS: LEVOTHYROXINE SODIUM 100 MCG TABLET PO (05:35)
[2023-05-09] MEDS: VANCOMYCIN HCL 250 MG ORAL CAPSULE PO ×2 (05:35→12:51)
[2023-05-09 05:53] LABS: Hematocrit 34.2 % (37.0-47.0); Hemoglobin 10.4 g/dL (12.0-15.0); Mean Corpuscular HGB Conc 30.4 g/dl (32-36); Mean Corpuscular Hemoglobin 25.2 pg (26-34); Mean Corpuscular Volume 82.8 fl (80-100); Mean Platelet Volume 9.8 fl (7.4-10.4); Platelet Count Result 385 k/mm3 (150-375); Red Blood Count 4.13 M/mm3 (4.2-5.4); Red Cell Distribution Width 16.9 % (11.5-14.5); White Blood Count 10.4 K/mm3 (4.5-10.0)
[2023-05-09 06:00] VITALS: BP 127/71; PULSE 66; RESP 18; TEMP 36.4; O2SAT 98
[2023-05-09 06:04] LABS: Alanine Aminotransferase 28 U/L (6-35); Albumin Level 3.7 g/dL (3.5-5.1); Alkaline Phosphatase 82 U/L (38-126); Anion Gap 9 mmol/L (8-16); Aspartate Amino Transferase 28 U/L (14-36); Bilirubin,Total 0.3 mg/dL (0.2-1.3); Blood Urea Nitrogen 19 mg/dL (7-17); Calcium 9.5 mg/dL (8.4-10.2); Carbon Dioxide 26 mmol/L (22-30); Chloride 104 mmol/L (98-107); Estimated Glomerular Filt Rate 34; Glucose 79 mg/dL (65-110); Magnesium 2.1 mg/dL (1.6-2.3); Potassium 3.7 mmol/L (3.4-5.0); Sodium 139 mmol/L (137-145)
[2023-05-09] MEDS: GABAPENTIN 300 MG CAPSULE 600 MG PO ×2 (08:50→12:51)
[2023-05-09] MEDS: MIDODRINE HCL 10 MG TABLET PO ×2 (08:51→12:51)
[2023-05-09] MEDS: FOLIC ACID 1 MG TABLET PO (08:51)
[2023-05-09] MEDS: ENOXAPARIN 30 MG/0.3 ML SYRINGE SUB-Q (08:51)
[2023-05-09] MEDS: predniSONE 20 MG TABLET 40 MG PO (08:51)
[2023-05-09] MEDS: ESCITALOPRAM OXALATE 10 MG TABLET 20 MG PO (08:51)
[2023-05-09 09:06] VITALS: O2SAT 97
--- NOTE | 2023-05-09 12:06 | PM.DS ---
DS: Admitting Diagnosis Discharge Date 05/09/23 Admitting Diagnosis Shock DS: Discharge Diagnosis Discharge Diagnosis (1) Metabolic acidosis: Code(s): E87.20 - Acidosis, unspecified Status: Acute (2) Hypo-osmolality and hyponatremia: Code(s): E87.1 - Hypo-osmolality and hyponatremia Status: Acute (3) Acute hypotension: Code(s): I95.9 - Hypotension, unspecified Status: Acute (4) Acute hypokalemia: Code(s): E87.6 - Hypokalemia Status: Acute (5) Hypothyroidism: Qualifiers: Hypothyroidism type: unspecified Qualified Code(s): E03.9 - Hypothyroidism, unspecified Code(s): E03.9 - Hypothyroidism, unspecified Status: Acute (6) Acute kidney injury superimposed on chronic kidney disease: Code(s): N17.9 - Acute kidney failure, unspecified; N18.9 - Chronic kidney disease, unspecified Status: Acute (7) Shock: Code(s): R57.9 - Shock, unspecified Status: Acute (8) Hypokalemia: Code(s): E87.6 - Hypokalemia Status: Acute DS: Summary Hospital Course Reason for hospitalization: Shock Hospital Course: 68-year-old female with a past medical history of chronic kidney disease at least stage III, depression, iron deficiency anemia and hypothyroidism who presented to the ER from a local restaurant after having a syncopal episode and being found to be profoundly hypotensive. Was admitted to ICU, was started on Levophed. Her antihypertensive was held. It was noted to have MERCEDEZ. Was started on IV fluids. Was started on broad-spectrum antibiotics, tested positive for C diff. All other antibiotics were discontinued, was started on oral vancomycin. Her blood pressure improved, was weaned off Levophed and IV fluids. Will continue with vancomycin to complete a course of antibiotic for C diff as outpatient. Will not discharge her on any antihypertensives. Her Mercedez I had resolved prior to discharge. Patient will follow-up with her PCP to reassess the need for antihypertensives as an outpatient. Status at Discharge Functional status at discharge: independent ambulation Overall status at discharge: patient is back to baseline Time Spent with Patient Time attestation: Total time spent providing and/or coordinating discharge services: Time spent: Greater than 30 minutes Exam Narrative: General physical exam: Patient lying in bed, appears tired and fatigued, pleasant and cooperative with exam Head/eyes: Atraumatic, EOMI, PERRLA ENT: Moist mucous membranes, nasal passages clear Neck: Supple, full range of motion, trachea midline CVS: S1 + S2, regular rate and rhythm, no murmurs Respiratory: Bilaterally fair air entry in both lung cordon, mild B/L crackles, symmetric chest expansion, no distress Abdomen: Soft, non-tender, bowel sounds +ve, no organomegaly Extremities: No clubbing, no cyanosis, no edema, no calf tenderness Musculoskeletal: Moves all, decreased range of motion, no muscle spasms Skin: Warm, dry, no jaundice, no cyanosis Neurological: Awake, alert, oriented x 3, cranial nerves II-XII intact, no focal neurological deficits Psychiatric: Normal mood, non suicidal DS: Data Data Completed and Pending Labs on day of discharge: Labs from last 24 hours 05/09/23 05:41 WBC 10.4 H RBC 4.13 L Hgb 10.4 L Hct 34.2 L MCV 82.8 MCH 25.2 L MCHC 30.4 L RDW 16.9 H Plt Count 385 H MPV 9.8 Sodium 139 Potassium 3.7 Chloride 104 Carbon Dioxide 26 Anion Gap 9 BUN 19 H Creatinine 1.50 H Estim Creat Clear Calc Not Reportable Estimated GFR 34 L Glucose 79 Calcium 9.5 Magnesium 2.1 Total Bilirubin 0.3 AST 28 ALT 28 Alkaline Phosphatase 82 Total Protein 6.0 L Albumin 3.7 Discharge Plan Discharge Attending physician on discharge: Noemi Mg Consulting providers: Jose Crandall; Ramana Saxena Discharging Clinician: Noemi Mg Anticipated Discharge Date/Time: 05/09/23 1
[2023-05-09] MEDS: FERROUS SULFATE 325 MG TABLET DR PO (12:51)
[2023-05-09 21:38] LABS: Norovirus RNA PCR, Stool NOT DETECTED
[2023-05-12 21:19] LABS: Creatinine, Random Urine 99 mg/dL (20-275); Total Protein/Creatinine Ratio 475 mg/g creat (24-184)
[2023-05-14 19:32] LABS: Pancreatic Elastase, Stool 177 mcg/g
== END 2023-05-09 13:52 | disposition home or self-care (01) | DRG 314 ==
LOC: ANHED 22:06 → ANHICU 22:52 → ANH2MED 05-09 12:06 → ANHICU 05-10 11:49
PROVIDERS: Family Medicine; Internal Medicine; Internal Medicine Nephrology; Admitting Provider Internal Medicine; Emergency Provider Emergency Medicine; PCP Internal Medicine; Visit Provider Internal Medicine
DX: I95.89 Other hypotension (principal); R57.8 Other shock; A04.72 Enterocolitis due to Clostridium difficile, not specified as recurrent; E87.1 Hypo-osmolality and hyponatremia; N17.9 Acute kidney failure, unspecified; R65.10 Systemic inflammatory response syndrome (SIRS) of non-infectious origin without acute organ dysfunction; E87.21 Acute metabolic acidosis; E87.6 Hypokalemia; I95.2 Hypotension due to drugs; T46.4X5A Adverse effect of angiotensin-converting-enzyme inhibitors, initial encounter; I12.9 Hypertensive chronic kidney disease with stage 1 through stage 4 chronic kidney disease, or unspecified chronic kidney disease; N18.30 Chronic kidney disease, stage 3 unspecified; E86.0 Dehydration; R55 Syncope and collapse; D50.9 Iron deficiency anemia, unspecified; M19.042 Primary osteoarthritis, left hand; E03.9 Hypothyroidism, unspecified; Z96.1 Presence of intraocular lens; Z98.42 Cataract extraction status, left eye; Z98.41 Cataract extraction status, right eye
CPT/HCPCS: 36415; 36556; 71045; 73120; 74018; 76775; 80048; 80053; 82274; 82330; 82533; 82550; 82570; 82607; 82653; 82728; 82746; 83540; 83550; 83605; 83630; 83735; 84100; 84132; 84133; 84145; 84155; 84156; 84165; 84166; 84300; 84443; 84484; 84550; 85025; 85027; 85046; 85652; 86140; 87040; 87045; 87425; 87427; 87449; 87493; 87641; 87798; 93005; 93306; 96361; 96365; 96367; 99291; A9270; C1751; J0834; J1650; J1756; J2543; J3475; J3480; J7030; J7050; J7120; J7512; P9047